=== PATIENT | male | born 1965 | race Caucasian/White ===

== ENCOUNTER 2017-09-02 22:29 | Inpatient (IN) | payer MEDICARE ==
--- NOTE | 2017-09-02 23:29 | C.PDOC ---
History Of Present Illness Patient presents to the ED with complaints of depression. Patient notes he drinks alcohol daily and currently believes he is going through withdrawal. Patient denies suicidal ideations or homicidal ideations. Time Seen by Provider: 09/02/17 23:29 Chief Complaint (Nursing): Psychiatric Evaluation History Per: Patient History/Exam Limitations: no limitations Onset/Duration Of Symptoms: Hrs Current Symptoms Are (Timing): Still Present Suicide/Self Injury Attempted (Context): None Modifying Factor(s): Alcohol Associated Symptoms: Depression. denies: Suicidal Thoughts, Suicidal Plan Involuntary Hold By: None Recent travel outside of the [place]: No Additional History Per: Family Past Medical History Reviewed: Historical Data, Nursing Documentation, Vital Signs Vital Signs: Last Vital Signs Temp 98.5 F 09/03/17 01:07 Pulse 81 09/03/17 01:07 Resp 20 09/03/17 01:07 BP 109/62 09/03/17 01:07 Pulse Ox 95 09/03/17 01:07 - Medical History PMH: Bipolar Disorder, Depression, Diabetes, Schizophrenia, Seizures ( noncompliant with medications) - [facility] (02/10/16) [facility]REATMENT, METHADONE MAINT (02/10/16) Family History: States: No Known Family Hx - Social History Hx Alcohol Use: No Hx Substance Use: Yes (heroin) - Immunization History Hx Tetanus Toxoid Vaccination: Yes Hx Influenza Vaccination: Yes Hx Pneumococcal Vaccination: No Review Of Systems Constitutional: Negative for: Fever Cardiovascular: Negative for: Chest Pain Gastrointestinal: Negative for: Diarrhea Neurological: Negative for: Headache Psych: Positive for: Depression, Withdrawal. Negative for: Suicidal ideation Physical Exam - Physical Exam Appears: Non-toxic, No Acute Distress Skin: Warm, Dry, No Rash Head: Atraumatic, Normacephalic, No Tenderness Eye(s): bilateral: Normal Inspection, PERRL, EOMI Oral Mucosa: Moist Neck: Supple Chest: Symmetrical, No Deformity Cardiovascular: Rhythm Regular, No Murmur Respiratory: No Rales, No Rhonchi, No Wheezing, Other (clear to auscultation bilaterally ) Gastrointestinal/Abdominal: Soft, No Tenderness, No Distention, No Guarding, No Rebound, Other (obese abdomen with small (stretch cruz?) questional excoriations ) Extremity: Normal ROM, No Tenderness, Capillary Refill (<2 seconds ), Other ( trace pedal camille; left fourth toe has an open cut with some granulation tissue appreciated, no exudates) Neurological/Psych: Oriented x3 ED Course And Treatment - Laboratory Results Result Diagrams: 09/02/17 23:30 09/02/17 23:30 O2 Sat by Pulse Oximetry: 99 (RA) Pulse Ox Interpretation: Normal Progress Note: pt will bwnwfit from a podiatry consult, and bid accuchecks Disposition Discussed With : Angela Snell Comment: accepted the pt on his service and took over the care at 12:47 AM Doctor Will See Patient In The: Hospital Counseled Patient/Family Regarding: Studies Performed, Diagnosis - Disposition Disposition: HOSPITALIZED Disposition Time: 23:29 Condition: FAIR - POA Present On Arrival: Poor Glycemic Control - Clinical Impression Clinical Impression: Major depressive disorder, recurrent, unspecified, Alcohol abuse, Cocaine abuse - Scribe Statement The provider has reviewed the documentation as recorded by the Scribe Lucille Young All medical record entries made by the Scribe were at my direction and personally dictated by me. I have reviewed the chart and agree that the record accurately reflects my personal performance of the history, physical exam, medical decision making, and the department course for this patient. I have also personally directed, reviewed, and agree with the discharge instructions and disposition. Decision To Admit - Pt Status Changed To: Hospital Disposition Of: Inpatient - Admit Certification Admit to Inpatient:: After my assessment, the patient will require hospitalization for at least two midnights. This is because of the severity of symptoms shown, intensity of services needed, and/or the medical risk in this patient being treated as an outpatient. - InPatient: Physician Admission Certification: I certify that this patient requires 2 or more midnights of care for the following reason:: After my assessment, the patient will require hospitalization for at least two midnights. This is because of the severity of symptoms shown, intensity of services needed, and/or the medical risk in this patient being treated as an outpatient. - . Bed Request Type: Psychiatry Admitting Physician: Angela Snell Patient Diagnosis: Alcohol abuse, Major depressive disorder, recurrent, unspecified, Cocaine abuse
[2017-09-02 23:41] LABS: RBC URINE 1 /hpf (0-3); URINE BILIRUBIN NEGATIVE (NEGATIVE); URINE BLOOD NEGATIVE (NEGATIVE); URINE COLOR Yellow (YELLOW); URINE GLUCOSE (UA) NORMAL (Normal); URINE KETONE NEGATIVE (NEGATIVE); URINE LEUKOCYTE ESTERASE NEG Leu/uL (Negative); URINE PROTEIN NEGATIVE (NEGATIVE); URINE UROBILINOGEN NORMAL mg/dL (0.2-1.0); WBC URINE 1 /hpf (0-5)
[2017-09-02 23:46] LABS: BASO # 0.1 K/uL (0.0-0.2); BASO % 1.2 % (0.0-2.0); EOS # 0.3 K/uL (0.0-0.7); HEMATOCRIT 42.9 % (35.0-51.0); LYMPH % 31.5 % (20.0-40.0); MEAN CELL VOLUME 89.7 fL (80.0-94.0); MEAN CORPUSCULAR HEMOGLOBIN 30.4 pg (27.0-31.0); MEAN CORPUSCULAR HGB CONC 33.9 g/dL (33.0-37.0); MEAN PLATELET VOLUME 8.9 fL (7.2-11.7); MONO % 10.9 % (0.0-10.0); RED CELL DISTRIBUTION WIDTH 13.7 % (11.5-14.5); WHITE BLOOD COUNT 9.6 K/uL (4.8-10.8)
[2017-09-02 23:49] LABS: ALB/GLOB RATIO 1.2 (1.0-2.1); ALCOHOL SERUM 133 mg/dl (0-10); ALKALINE PHOSPHATASE 61 U/L (38-126); ALT/SGPT 97 U/L (21-72); AST/SGOT 94 U/L (17-59); BILIRUBIN,TOTAL 0.7 mg/dL (0.2-1.3); BLOOD UREA NITROGEN 15 mg/dL (9-20); CALCIUM 8.2 mg/dl (8.6-10.4); CARBON DIOXIDE 23 mmol/L (22-30); CHLORIDE 99 mmol/L (98-107); GFR AFRICAN-AMERICAN > 60; GLUCOSE,RANDOM 126 mg/dL (75-110); POTASSIUM 3.7 mmol/L (3.6-5.2); SODIUM 134 mmol/L (132-148); TOTAL PROTEIN 7.5 g/dL (6.3-8.3)
--- NOTE | 2017-09-03 01:35 | PCM.BM ---
<Dee Veronica - Last Filed: 09/03/17 01:35> Treatment Plan Problems - Problems identified on initial assessmt Suicidal Ideation Date Initiated: 09/03/17 Time Initiated: 01:20 Assessment reference: NA Status: Active Auditory Hallucinations Date Initiated: 09/03/17 Time Initiated: 01:20 Assessment reference: NA Status: Active Substance Abuse Date Initiated: 09/03/17 Time Initiated: 01:20 Assessment reference: NA Status: Active Depression Date Initiated: 09/03/17 Time Initiated: 01:20 Assessment reference: NA Status: Active Treatment assets and liabiliti Patient Assests: cooperative, ADL independent, negotiates basic needs Patient Liabilities: substance abuse, medical problems - Milieu Protocol Maintain good personal hygiene: daily Encourage regular showers, daily Remind patient to perform daily oral care, daily Assist patient to perform ADL's Conduct patient checks and document Observation sheet: Q15 minutes Maintain personal safety: every shift Educate patient to report safety concerns to staff, every shift Monitor environment for contraband/sharps Medication safety: Monitor for expected outcome, potential side effects: every shift, Assess barriers to learning: every shift, Assess readiness for medication education: every shift <Mame Azul - Last Filed: 09/04/17 10:52> Family Contact Family involvement: Fredrickliy/SO not involved - Goals for Treatment Patient goals for treatment: "I need the right medication." Discharge/Continuing Care - Education Needs Education Needs: Patient Medication, Patient Coping Skills, Patient Placement options, Patient Community resources - Discharge Discharge Criteria: Tolerates medication w/o severe side effects, Free of Suicidal thoughts, No longer exhibiting s/s of withdrawal, Reduction of target symptoms Discharge to:: Home - Treatment Team Participation Discussed with Family/SO: No Was Patient/Family/SO present at Treatment Team Meeting: Yes <Ronald Rangel - Last Filed: 09/04/17 10:58> - Diagnosis (1) Schizoaffective disorder Status: Acute Interventions: 09/04/17 10:57 * Assess/adjust medications daily and /or as needed * See patient on an individual basis 7x/week to assess status of hallucinations * Discuss risks, benefits, side effects and alternatives of medications * (2) Alcohol abuse Status: Acute Interventions: 09/04/17 10:57 * Assess 7x/week regarding severity of withdrawal * Educate regarding risks, benefits, side effects and alternatives of medications * Use Motivational Interviewing for abstinence * Use CBT for relapse prevention * Medication management for withdrawal symptoms * Encourage medication assisted treatment * (3) Heroin abuse Status: Acute Interventions: 09/04/17 10:57 * Assess 7x/week regarding severity of withdrawal * Educate regarding risks, benefits, side effects and alternatives of medications * Use Motivational Interviewing for abstinence * Use CBT for relapse prevention * Medication management for withdrawal symptoms * Encourage medication assisted treatment *
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
[2017-09-03] MEDS ORDERED: Aluminum Hydroxide/Magnesium Hydroxide Susp (30 mL) PO PRN (12:17)
[2017-09-03] MEDS: Multiple Vitamins Tab PO SCH (12:57)
[2017-09-04] MEDS: Multiple Vitamins Tab PO SCH (09:44)
[2017-09-04] MEDS ORDERED: Divalproex 500 mg DR Tab PO STA (10:53)
--- NOTE | 2017-09-04 10:59 | PCM.PYCHPN ---
Psychiatric Progress Note - Psychiatric Progress Note Patient seen today, length of contact: 17 min Patient Chief Complaint: "not good" Problems Identified/Issues Discussed: The patient was seen, chart reviewed, and case discussed with staff. Patient and staff report no events overnight. He reports poor sleep due to flashbacks of childhood events. He continues to report suicidal ideations with a vague plan to "do anything to ." He continues to report auditory hallucinations that tell him to harm himself and "go to hell." He continues to report visual hallucinations of shadows and demons. He reports feelings of depression and decreased levels of: sleep, interest, energy, concentration, appetite, psychomotor ability. He also reports feelings of anxiety due to being in the hospital. Patient appears appropriately dressed and internally preoccupied. He has a constricted affect with loud/angry speech. He is cooperative but very irritable. Patient is compliant with medications and reports no side effects. Symptoms are still present and need more time to stabilize. Support and psychoeducation given. Medical Problems: He reports improvement of his withdrawal symptoms. Medication Change: Yes (methadone taper) Medical Record Reviewed: Yes Mental Status Examination - Cognitive Function Orientation: Person, Place, Situation, Time Memory: Intact Attention: Poor Concentration: Poor Association: Loose Fund of Knowledge: Poor - Mood Mood: Depressed, Anxious - Affect Affect: Constricted, Depressed - Speech Speech: Loud - Formal Thought Process Formal Thought Process: Hallucinations, Delusions, Paranoia, Loosening of associations - Suicidal Ideation Suicidal Ideation: Yes Plan: vague - Homicidal Ideation Homicidal Ideation: No Goal/Treatment Plan - Goal/Treatment Plan Need for Continued Stay: Remain at risks for inpatient hospitalization, Severe depression anxiety, Discharge may exacerbated symptoms Progress Toward Problem(s) and Goals/Treatment Plan: Schizophrenia paranoid type continuous CBT Psychoeducation Supportive therapy, group therapy, individual therapy Olanzapine 10 mg by mouth HS Zoloft 50 mg PO Daily Trazodone 50 mg by mouth daily at bedtime Opioid use disorder severe CBT Psychoeducation Supportive therapy, individual therapy Use [place] for abstinence Opioid withdrawal CBT Psychoeducation Supportive therapy, individual therapy Clonidine when necessary Methadone taper Alcohol use disorder severe CBT Psychoeducation Supportive therapy, individual therapy Use [place] for abstinence Alcohol withdrawal CBT Psychoeducation Supportive therapy, individual therapy Librium taper Librium PRN Cocaine use disorder moderate Monitor signs and symptoms Use [place] for abstinence DM Continue prescribed medications HTN Continue prescribed medications Seizures Continue prescribed medications - Smoking Cessation Smoking Cessation Initiated: No
[2017-09-04] MEDS ORDERED: DiphenhydrAMINE 50 mg/ml Inj IM PRN (11:22)
[2017-09-04] MEDS: Divalproex 500 mg DR Tab PO SCH (17:53)
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
[2017-09-05] MEDS: Multiple Vitamins Tab PO SCH (09:48)
[2017-09-05] MEDS: Divalproex 500 mg DR Tab PO SCH ×2 (09:48→17:34)
--- NOTE | 2017-09-05 10:38 | PCM.PYCHPN ---
Psychiatric Progress Note - Psychiatric Progress Note Patient seen today, length of contact: 15 min Patient Chief Complaint: "I'm not good at all" Problems Identified/Issues Discussed: This patient was seen, chart reviewed, and case discussed with staff. Patient and staff report that the patient fell yesterday, however he didn't hit his head. Patient continues to report suicidal ideations with a vague plan. He denies any homicidal ideations. He reports increasing feelings of depression and anxiety. He reports auditory and visual hallucinations, hearing and seeing "demons." He reports poor sleep due to the AVH. He continues to report poor appetite. Patient appears disheveled and remained irritable and agitated with the staff. He continues to have loud/angry speech. He is seen by staff pacing in the halls. Patient is compliant with medications and denies any side effects. Symptoms persist and need more time to stabilize. Support and psychoeducation given. Medication Change: Yes (methadoen taper) Medical Record Reviewed: Yes Mental Status Examination - Cognitive Function Orientation: Person, Place, Situation, Time Memory: Intact Attention: WNL Concentration: WNL Association: Loose Fund of Knowledge: Poor - Mood Mood: Depressed, Anxious - Affect Affect: Constricted, Depressed - Speech Speech: Loud - Formal Thought Process Formal Thought Process: Hallucinations, Delusions, Paranoia, Loosening of associations - Suicidal Ideation Suicidal Ideation: Yes Plan: vague - Homicidal Ideation Homicidal Ideation: No Goal/Treatment Plan - Goal/Treatment Plan Need for Continued Stay: Remain at risks for inpatient hospitalization, Severe depression anxiety, Discharge may exacerbated symptoms, Other Progress Toward Problem(s) and Goals/Treatment Plan: Schizophrenia paranoid type continuous CBT Psychoeducation Supportive therapy, group therapy, individual therapy Depakote 500 mg pO BID Zoloft 50 mg PO Daily Trazodone 100 mg by mouth daily at bedtime Opioid use disorder severe CBT Psychoeducation Supportive therapy, individual therapy Use [place] for abstinence Opioid withdrawal CBT Psychoeducation Supportive therapy, individual therapy Clonidine when necessary Methadone taper Alcohol use disorder severe CBT Psychoeducation Supportive therapy, individual therapy Use [place] for abstinence Alcohol withdrawal CBT Psychoeducation Supportive therapy, individual therapy Librium taper Librium PRN Cocaine use disorder moderate Monitor signs and symptoms Use [place] for abstinence DM Continue prescribed medications Metformin, lantus etc Continue Accu checks HTN Continue prescribed medications Seizures Continue prescribed medications - Smoking Cessation Smoking Cessation Initiated: No
[2017-09-05] MEDS ORDERED: (Novolog) Insulin Aspart, Recombinant 100 u/ml 10 ml vial SC SCH (11:30)
[2017-09-05] MEDS: (Novolog) Insulin Aspart, Recombinant 100 u/ml 10 ml vial SC SCH ×2 (11:57→16:42)
[2017-09-05] MEDS ORDERED: DiphenhydrAMINE 50 mg/ml Inj IM ONE (19:30)
[2017-09-05 19:38] VITALS: O2SAT 95
[2017-09-05] MEDS ORDERED: (Lantus) Insulin Glargine, Recombinant SC SCH (22:00)
[2017-09-06 07:00] VITALS: RESP 20; TEMP 98.3
[2017-09-06] MEDS: (Novolog) Insulin Aspart, Recombinant 100 u/ml 10 ml vial SC SCH ×3 (08:07→16:41)
[2017-09-06] MEDS: Multiple Vitamins Tab PO SCH (09:56)
[2017-09-06] MEDS: Divalproex 500 mg DR Tab PO SCH ×2 (09:56→17:47)
--- NOTE | 2017-09-06 10:05 | PCM.PYCHPN ---
Psychiatric Progress Note - Psychiatric Progress Note Patient seen today, length of contact: 15 min Patient Chief Complaint: "I'm better I think" Problems Identified/Issues Discussed: This patient was seen, chart reviewed, and case discussed with staff. Patient reports poor sleep due to continued auditory and visual hallucinations. He continues to report increasing feelings of depression and anxiety. He reports poor appetite. He denies any suicidal or homicidal ideations at this time. Patient appears disheveled and lethargic. He continues to pace in the halls, but now spends more time in his room to sleep. He is cooperative but is slow to respond to questions during the interview, closing his eyes for several seconds and needing redirection. Patient is compliant with medications and denies any side effects. Symptoms persist and need more time to stabilize. Support and psychoeducation given. Medical Record Reviewed: Yes Mental Status Examination - Cognitive Function Orientation: Person, Place, Situation, Time Memory: Intact Attention: WNL Concentration: WNL Association: Loose Fund of Knowledge: Poor - Mood Mood: Depressed, Anxious - Affect Affect: Constricted, Depressed - Speech Speech: Slurred, Soft - Formal Thought Process Formal Thought Process: Hallucinations, Delusions, Paranoia, Loosening of associations - Suicidal Ideation Suicidal Ideation: No - Homicidal Ideation Homicidal Ideation: No Goal/Treatment Plan - Goal/Treatment Plan Need for Continued Stay: Remain at risks for inpatient hospitalization, Severe depression anxiety, Discharge may exacerbated symptoms, Other Progress Toward Problem(s) and Goals/Treatment Plan: Schizophrenia paranoid type continuous CBT Psychoeducation Supportive therapy, group therapy, individual therapy Depakote 500 mg pO BID Zoloft 50 mg PO Daily Trazodone 100 mg by mouth daily at bedtime Opioid use disorder severe CBT Psychoeducation Supportive therapy, individual therapy Use DC for abstinence Opioid withdrawal CBT Psychoeducation Supportive therapy, individual therapy Clonidine when necessary Methadone taper Alcohol use disorder severe CBT Psychoeducation Supportive therapy, individual therapy Use DC for abstinence Alcohol withdrawal CBT Psychoeducation Supportive therapy, individual therapy Librium taper Librium PRN Cocaine use disorder moderate Monitor signs and symptoms Use DC for abstinence DM Continue prescribed medications Metformin, lantus etc Continue Accu checks HTN Continue prescribed medications Seizures Continue prescribed medications
[2017-09-06 16:35] VITALS: BP 120/82; PULSE 76
--- NOTE | 2017-09-06 19:59 | CP.PCM.CON ---
<Concha Tomlin - Last Filed: 09/06/17 19:55> History of Present Illness - History of Present Illness History of Present Illness: Medicine Consult Note: Medicine consult was called for foot pain. Patient was seen and examined at bedside. Patient states his left foot started to hurt 2 nights ago. He says his pain is sharp located on his second toe. Patient denies radiation. He states nothing makes the better and nothing makes the pain worse. Patient denies fever, numbness, tingling, difficulty breathing, chest pain, nausea or vomiting. Medical History: Diabetes Surgical History: Spinal Cord surgery 2014 Family History: denies: Medications: Lantus - does not remember the dose Allergies: Resperidone and Haloperidol - rash Social History: unemployed; use of cocaine, heroine and alcohol Review of Systems - Constitutional Constitutional: absent: Chills, Fever - EENT Ears: absent: Dizziness - Cardiovascular Cardiovascular: absent: Chest Pain, Dyspnea - Respiratory Respiratory: absent: Dyspnea - Gastrointestinal Gastrointestinal: absent: Constipation, Diarrhea, Nausea, Vomiting - Genitourinary Genitourinary: absent: Dysuria - Neurological Neurological: absent: Dizziness, Headaches, Tingling, Weakness - Psychiatric Psychiatric: Depression Past Patient History - Infectious Disease Hx of Infectious Diseases: None - Past Social History Smoking Status: Never Smoked - CARDIAC Hx Cardiac Disorders: No Hx Hypertension: No - PULMONARY Hx Respiratory Disorders: No Hx Tuberculosis: No - NEUROLOGICAL Hx Seizures: Yes (noncompliant with medications) - HEENT Hx HEENT Problems: No - RENAL Hx Chronic Kidney Disease: No - ENDOCRINE/METABOLIC Hx Diabetes Mellitus Type 1: Yes (noncompliant with medications) - HEMATOLOGICAL/ONCOLOGICAL Hx AIDS: No Hx Cancer: No Hx Human Immunodeficiency Virus (HIV): No - INTEGUMENTARY Hx Dermatological Problems: No Other/Comment: Diabetic changes; thick skin - MUSCULOSKELETAL/RHEUMATOLOGICAL Hx Musculoskeletal Disorders: No Hx Falls: No - GASTROINTESTINAL Hx Gastrointestinal Disorders: No - GENITOURINARY/GYNECOLOGICAL Hx Genitourinary Disorders: No Hx Sexually Transmitted Disorders: No - PSYCHIATRIC Hx Substance Use: Yes - SURGICAL HISTORY Hx Surgeries: Yes Hx Orthopedic Surgery: Yes (Spinal surgery) Other/Comment: back surgery - ANESTHESIA Hx Anesthesia: Yes Hx Anesthesia Reactions: No Hx Malignant Hyperthermia: No Meds Allergies/Adverse Reactions: Allergies Allergy/AdvReac Type Severity Reaction Status Date / Time chlorpromazine HCl Allergy Verified 09/02/17 22:35 [From Thorazine] haloperidol [From Haldol] Allergy Verified 09/02/17 22:35 haloperidol lactate Allergy Verified 09/02/17 22:35 [From Haldol] risperidone [From Risperdal] Allergy Verified 09/02/17 22:35 - Medications Medications: Current Medications Al Hydrox/Mg Hydrox/Simethicone (Maalox 30 Ml) 30 ml PO TID PRN PRN Reason: Indigestion / Heartburn Chlordiazepoxide (Librium) 25 mg PO BID [facility] PRN Reason: Taper Stop: 09/08/17 17:59 Last Admin: 09/06/17 17:47 Dose: 25 mg Chlordiazepoxide (Librium) 25 mg PO Q4H PRN PRN Reason: Alcohol Withdrawal Clonidine HCl (Catapres) 0.1 mg PO Q6H PRN PRN Reason: Anxiety Last Admin: 09/03/17 02:05 Dose: 0.1 mg Divalproex Sodium (Depakote Dr) 500 mg PO BID [facility] Last Admin: 09/06/17 17:47 Dose: 500 mg Folic Acid (Folic Acid) 1 mg PO DAILY [facility] Last Admin: 09/06/17 09:56 Dose: 1 mg Insulin Aspart (Novolog) 10 unit SC TIDAC [facility] Last Admin: 09/06/17 16:41 Dose: 10 unit Insulin Glargine (Lantus) 15 unit SC HS [facility] Last Admin: 09/05/17 21:38 Dose: 15 unit Loperamide HCl (Imodium) 2 mg PO Q8 PRN PRN Reason: Diarrhea Last Admin: 09/05/17 20:20 Dose: 2 mg Lorazepam (Ativan) 1 mg PO Q6H PRN PRN Reason: Agitation Last Admin: 09/06/17 15:40 Dose: 1 mg [facility] Last Admin: 09/06/17 17:28 Dose: 1,000 mg Methadone HCl (Methadone) 5 mg PO DAILY [facility] PRN Reason: Taper Stop: 09/07/17 09:59 Last Admin: 09/06/17 09:57 Dose: 5 mg Multivitamins (Hexavitamin) 1 tab PO DAILY [facility] Last Admin: 09/06/17 09:56 Dose: 1 tab Ondansetron HCl (Zofran Tab) 4 mg PO Q8 PRN PRN Reason: Nausea/Vomiting Phenytoin Sodium (Dilantin) 100 mg PO TID [facility] Last Admin: 09/06/17 17:48 Dose: 100 mg Prazosin HCl (Minipress) 2 mg PO HS [facility] Last Admin: 09/05/17 21:14 Dose: 2 mg Sertraline HCl (Zoloft) 50 mg PO DAILY [facility] Last Admin: 09/06/17 09:56 Dose: 50 mg Thiamine HCl (Vitamin B1 Tab) 100 mg PO DAILY [facility] Last Admin: 09/06/17 09:56 Dose: 100 mg Trazodone HCl (Desyrel) 100 mg PO HS PRN PRN Reason: Sleep Last Admin: 09/05/17 21:14 Dose: 100 mg Ziprasidone (Geodon Cap) 20 mg PO BID [facility] Last Admin: 09/06/17 18:41 Dose: Not Given Physical Exam - Constitutional Appears: No Acute Distress - Head Exam Head Exam: ATRAUMATIC, NORMAL INSPECTION - Eye Exam Eye Exam: EOMI - ENT Exam ENT Exam: Mucous Membranes Moist - Respiratory Exam Respiratory Exam: Clear to Auscultation Bilateral, NORMAL BREATHING PATTERN. absent: Rales, Rhonchi, Wheezes, Stridor - Cardiovascular Exam Cardiovascular Exam: REGULAR RHYTHM, RRR, +S1, +S2 - GI/Abdominal Exam GI & Abdominal Exam: Normal Bowel Sounds, Soft. absent: Tenderness - Extremities Exam Extremities exam: Positive for: normal inspection - Neurological Exam Neurological exam: Alert, Oriented x3 - Psychiatric Exam Psychiatric exam: Flat Affect - Skin Skin Exam: Dry, Intact, Normal Color, Warm Results - Vital Signs Recent Vital Signs: Last Vital Signs Temp 98.3 F 09/06/17 06:59 Pulse 76 09/06/17 15:30 Resp 20 09/06/17 06:59 BP 120/82 09/06/17 15:30 Pulse Ox 95 09/05/17 19:26 - Labs Result Diagrams: 09/02/17 23:30 09/02/17 23:30 Labs: Laboratory Results - last 24 hr 09/05/17 09/06/17 09/06/17 20:30 07:29 11:26 POC Glucose (mg/dL) 236 H 215 H 157 H 09/06/17 15:43 POC Glucose (mg/dL) 160 H Assessment & Plan - Assessment and Plan (Free Text) Assessment: 51 year old male with past medical history of diabetes, schizophrenia and multiple substance abuse withdrawal. Patient was consulted for foot pain. At this time no medical management is necessary. Patient is walking comfortably. Patient's skin is clean, dry and intact. Thank you for this consult. Please consult if necessary. Case discussed with Dr. Tessie Tomlin PGY-1 <Ted Kurtz - Last Filed: 09/07/17 07:24> Results - Vital Signs Recent Vital Signs: Last Vital Signs Temp 98.3 F 09/06/17 06:59 Pulse 76 09/06/17 15:30 Resp 20 09/06/17 06:59 BP 120/82 09/06/17 15:30 Pulse Ox 95 09/05/17 19:26 - Labs Result Diagrams: 09/02/17 23:30 09/02/17 23:30 Labs: Laboratory Results - last 24 hr 09/06/17 09/06/17 09/06/17 07:29 11:26 15:43 POC Glucose (mg/dL) 215 H 157 H 160 H Attending/Attestation - Attestation I have personally seen and examined this patient.: Yes I have fully participated in the care of the patient.: Yes I have reviewed all pertinent clinical information: Yes Notes (Text): Medical Consult: Patient was seen and examined by me. Agree with the above note by the resident Medicine was consulted due to pain in the lower extremities. On physical exam he does not have any open wounds of the feet. He does not have erythema, he does not have pedal edema or edema in the lower anterior gibson On exam we also had him walk with us and he was readily able to do so without assistance. He is obeserved walking up and down the hallway of on his own. Please notify us if there are changes thank you Ted Kurtz
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
== END 2017-09-06 20:45 | disposition home or self-care (01) | DRG 885 ==
LOC: C.ER 22:29 → SUPCPDRO 22:29 → C.5E 09-03 00:45
PROVIDERS: ADMIT Psychiatry & Neurology Psychiatry; ATTEND Psychiatry & Neurology Psychiatry
PROC: GZ3ZZZZ Medication Management (ICD-10-PCS; principal; 2017-09-03)
PROC: HZ56ZZZ Individual Psychotherapy for Substance Abuse Treatment, Psychoeducation (ICD-10-PCS; 2017-09-03)
PROC: HZ2ZZZZ Detoxification Services for Substance Abuse Treatment (ICD-10-PCS; 2017-09-03)
PROC: GZHZZZZ Group Psychotherapy (ICD-10-PCS; 2017-09-03)
PROC: GZ56ZZZ Individual Psychotherapy, Supportive (ICD-10-PCS; 2017-09-03)
DX: F20.0 Paranoid schizophrenia (principal); R45.851 Suicidal ideations; F11.23 Opioid dependence with withdrawal; F10.239 Alcohol dependence with withdrawal, unspecified; F14.20 Cocaine dependence, uncomplicated; R56.9 Unspecified convulsions; E10.9 Type 1 diabetes mellitus without complications; F06.4 Anxiety disorder due to known physiological condition; F25.9 Schizoaffective disorder, unspecified; I10 Essential (primary) hypertension; F31.9 Bipolar disorder, unspecified; Z91.14 Patient's other noncompliance with medication regimen; Z79.4 Long term (current) use of insulin; Z79.899 Other long term (current) drug therapy; Y90.6 Blood alcohol level of 120-199 mg/100 ml

== ENCOUNTER 2018-09-19 20:35 | Emergency (ER) | payer MEDICARE ==
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
[2018-09-19] MEDS ORDERED: Morphine 4 MG/ML VIAL IM STA (22:05)
[2018-09-19] MEDS ORDERED: Morphine 4 MG/ML VIAL ONE (22:20)
[2018-09-19 23:03] LABS: BASO # 0.1 K/uL (0.0-0.2); BASO % 0.7 % (0.0-2.0); EOS # 0.4 K/uL (0.0-0.7); EOS % 4.1 % (0.0-4.0); HEMOGLOBIN 13.6 g/dL (12.0-18.0); LYMPH % 20.9 % (20.0-40.0); MEAN CELL VOLUME 90.8 fL (80.0-94.0); MEAN CORPUSCULAR HEMOGLOBIN 30.9 pg (27.0-31.0); MEAN PLATELET VOLUME 8.2 fL (7.2-11.7); MONO # 1.4 K/uL (0.0-0.8); MONO % 14.3 % (0.0-10.0); NEUT # 5.7 K/uL (1.8-7.0); NRBC % 0.1 % (0.0-2.0); RBC 4.39 Mil/uL (4.40-5.90); RED CELL DISTRIBUTION WIDTH 13.5 % (11.5-14.5); WHITE BLOOD COUNT 9.6 K/uL (4.8-10.8)
[2018-09-19 23:17] LABS: ALB/GLOB RATIO 1.1 (1.0-2.1); ALBUMIN 3.9 g/dL (3.5-5.0); ALT/SGPT 30 U/L (21-72); AST/SGOT 45 U/L (17-59); BLOOD UREA NITROGEN 11 mg/dL (9-20); CALCIUM 8.7 mg/dl (8.6-10.4); GFR NON-AFRICAN AMERICAN > 60
[2018-09-19 23:44] LABS: PROTHROMBIN TIME 11.3 SECONDS (9.7-12.2)
[2018-09-19 23:53] VITALS: BP 120/67; PULSE 70; RESP 18; TEMP 98.1; O2SAT 95
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
== END 2018-09-20 01:08 | disposition short-term general hospital (02) ==
LOC: C.ER 20:35
DX: S02.69XA Fracture of mandible of other specified site, initial encounter for closed fracture (principal); Y04.0XXA Assault by unarmed brawl or fight, initial encounter
CPT/HCPCS: 70450; 70480; 80053; 85025; 85610; 85730; 96372; 99283; G0480; J2270

== ENCOUNTER 2019-02-15 23:38 | Inpatient (IN) | payer MEDICARE ==
--- NOTE | 2019-02-15 23:59 | C.PDOC ---
History Of Present Illness 53 yr old male w/ hx of etoh and heroin abuse, Anxiety, Bipolar Disorder, Depression, Diabetes, HTN p/w request for detox from heroin and etoh. He notes last snorting (No IVDU) heroin around 0600 this morning, and last etoh use at 06 00. He denies any current withdrawal symptoms. He denies any physical complaints. No SI / HI. No depression / anxiety or hallucinations. Time Seen by Provider: 02/15/19 23:45 Chief Complaint (Nursing): Substance Abuse Past Medical History Vital Signs: Last Vital Signs Temp 97.8 F 02/15/19 23:52 Pulse 90 02/15/19 23:52 Resp 18 02/15/19 23:52 BP 159/83 H 02/15/19 23:52 Pulse Ox 96 02/15/19 23:52 Primary Care Provider: FAMILY PROVIDER,NO - Medical History PMH: Anxiety, Bipolar Disorder, Depression, Diabetes, HTN, Schizophrenia, Seizures (noncompliant with medications) Denies: Hepatitis, HIV, Chronic Kidney Disease, Sexually Transmitted Disease - [facility] Procedures DETOXIFICATION SERVICES FOR SUBSTANCE ABUSE TREATMENT (09/03/17) GROUP PSYCHOTHERAPY (09/03/17) INDIV PSYCHOTHERAPY FOR SUBSTANCE ABUSE, PSYCHOEDUCATION (09/03/17) INDIVIDUAL PSYCHOTHERAPY, SUPPORTIVE (09/03/17) MEDICATION MANAGEMENT (09/03/17) MEDS MGMT FOR SUBSTANCE ABUSE TREATMENT, METHADONE MAINT (02/10/16) Family History: States: Unknown Family Hx - Social History Hx Alcohol Use: Yes Hx Substance Use: Yes - Immunization History Hx Tetanus Toxoid Vaccination: No Hx Influenza Vaccination: No Hx Pneumococcal Vaccination: No Review Of Systems Constitutional: Negative for: Fever, Chills, Sweats, Weakness, Malaise Eyes: Negative for: Pain, Vision Change, Conjunctivae Inflammation, Eyelid Inflammation ENT: Negative for: Ear Pain, Ear Discharge, Nose Pain, Nose Congestion, Mouth Pain Cardiovascular: Negative for: Chest Pain, Palpitations, Orthopnea, Edema Respiratory: Negative for: Cough, Shortness of Breath, SOB with Excertion Gastrointestinal: Negative for: Nausea, Vomiting, Abdominal Pain, Diarrhea, Constipation, Melena, Hematochezia, Hematemesis Genitourinary: Negative for: Dysuria, Frequency, Incontinence, Hematuria, Penile Discharge, Rash Musculoskeletal: Negative for: Neck Pain, Shoulder Pain, Arm Pain, Back Pain, Hand Pain Skin: Negative for: Rash, Lesions, Jaundice Neurological: Negative for: Weakness, Numbness, Incoordination, Headache Physical Exam - Physical Exam Appears: Well, Non-toxic Skin: Normal Color, Warm Head: Atraumatic, Normacephalic Eye(s): bilateral: Normal Inspection Ear(s): Bilateral: Normal Nose: Normal Oral Mucosa: Moist Tongue: Normal Appearing Lips: Normal Appearing Throat: Normal, No Erythema, No Exudate, No Drooling Neck: Normal, Normal ROM, No Midline Cervical Tenderness, Supple, Other (no meningeal signs) Lymphatic: No Adenopathy Cardiovascular: Rhythm Regular, No Edema Respiratory: Normal Breath Sounds, No Rales, No Rhonchi, No Stridor, No Wheezing Gastrointestinal/Abdominal: Normal Exam, Soft, No Tenderness, No Mass, No Distention, No Guarding, No Hernia Back: Normal Inspection, No CVA Tenderness, No Vertebral Tenderness Male Genital: Normal Inspection Extremity: Normal ROM Neurological/Psych: Oriented x3, Normal Speech, Normal Cognition Gait: Steady Extremity: Right: No Drift, Left: No Drift ED Course And Treatment - Laboratory Results Result Diagrams: 02/16/19 00:33 02/16/19 00:33 O2 Sat by Pulse Oximetry: 96 Medical Decision Making Medical Decision Makin yr old male w/ hx of etoh and heroin abuse, Anxiety, Bipolar Disorder, Depression, Diabetes, HTN p/w request for detox from heroin and etoh. No signs of withdrawal on exam. No injection sites noted. Physical exam unremarkable pending crisis eval 0138 labs reviewed, largely unremarkable CXR on my read unremarkable EK, nsr, no stemi medically clear appreciate consult w/ Database Security Expert: Hedy: to admit to [facility] service 0140 Pt requesting something for mild withdrawal: no tremors noted on my exam, pt non tachy. No signs of withdrawal 25 librium ordered per pt request Disposition - Disposition Disposition: HOSPITALIZED Disposition Time: 01:55 Condition: STABLE - Clinical Impression Clinical Impression: Desire for detoxification, Alcohol abuse
[2019-02-16 00:39] LABS: BASO # 0.1 K/uL (0.0-0.2); BASO % 0.9 % (0.0-2.0); EOS # 0.3 K/uL (0.0-0.7); EOS % 3.9 % (0.0-4.0); HEMOGLOBIN 13.3 g/dL (12.0-18.0); LYMPH % 27.4 % (20.0-40.0); MEAN CELL VOLUME 89.6 fL (80.0-94.0); MEAN CORPUSCULAR HEMOGLOBIN 31.2 pg (27.0-31.0); MEAN CORPUSCULAR HGB CONC 34.8 g/dL (33.0-37.0); MEAN PLATELET VOLUME 8.1 fL (7.2-11.7); MONO % 13.4 % (0.0-10.0); NEUT # 3.9 K/uL (1.8-7.0); NEUT % 54.4 % (50.0-75.0); NRBC % 0.1 % (0.0-2.0); RBC 4.27 Mil/uL (4.40-5.90); RED CELL DISTRIBUTION WIDTH 13.8 % (11.5-14.5); WHITE BLOOD COUNT 7.1 K/uL (4.8-10.8)
[2019-02-16 00:54] LABS: BARBITURATES, UR NEGATIVE (NEGATIVE); BENZODIAZEPINES, UR NEGATIVE (NEGATIVE); PHENCYCLIDINE, UR NEGATIVE (NEGATIVE); SQUAMOUS EPITHIAL 1 /hpf (0-5); URINE BILIRUBIN NEGATIVE (NEGATIVE); URINE BLOOD NEGATIVE (NEGATIVE); URINE CLARITY Clear (Clear); URINE COLOR Yellow (YELLOW); URINE GLUCOSE (UA) NORMAL (Normal); URINE LEUKOCYTE ESTERASE NEG Leu/uL (Negative); URINE PROTEIN NEGATIVE (NEGATIVE)
[2019-02-16 01:02] LABS: ACETAMINOPHEN < 10.0 ug/mL (10.0-30.0); SALICYLATE < 1.0 mg/dL 1
[2019-02-16 01:04] LABS: ALB/GLOB RATIO 1.1 (1.0-2.1); ALBUMIN 4.1 g/dL (3.5-5.0); ALT/SGPT 39 U/L (21-72); AST/SGOT 40 U/L (17-59); BLOOD UREA NITROGEN 17 mg/dL (9-20); CALCIUM 9.6 mg/dl (8.6-10.4); GFR NON-AFRICAN AMERICAN > 60
[2019-02-16 01:21] LABS: OPIATES, UR POSITIVE (NEGATIVE)
[2019-02-16] MEDS ORDERED: Dextrose 50% SYRINGE Inj (50 ml) IV PRN (03:18)
[2019-02-16] MEDS ORDERED: Glucagon Recombinant 1 mg Inj IM PRN (03:18)
--- NOTE | 2019-02-16 03:20 | CP.PCM.HP ---
<Freida Sahu - Last Filed: 02/16/19 05:02> History of Present Illness - History of Present Illness History of Present Illness: Patient is a 53 year old male w/ pmhx of alcohol and opioid abuse, seizure disorder, DM2, HTN who was admitted to detox, transferred to medicine s/p seizure activity on unit. Patient reports a history of seizure disorder in the past, treated with medication, but reports non-compliance. He says he's unable to recall when his last seizure was. Patient complains of persistent right sided jaw pain 2/2 a reported fracture. Patient currently denies complaints including headache, dizziness, weakness, chest pain, SOB, nausea pmhx: sizure d/o, alcohol/opioid use d/o, DM2, HTN, Hep C pshx: spinal sx meds: unknown allergies: abilify, haldol, thorazine, risperdal Sochx: 1.5 pts daily, 25 bags heroin daily(intranasal), 1 ppd smoker Present on Admission - Present on Admission Any Indicators Present on Admission: No Review of Systems - EENT Eyes: absent: Change in Vision Additional comments: right sided jaw pain - Cardiovascular Cardiovascular: absent: Chest Pain, Palpitations - Respiratory Respiratory: absent: Cough, Dyspnea - Gastrointestinal Gastrointestinal: absent: Abdominal Pain, Constipation, Diarrhea, Nausea - Genitourinary Genitourinary: absent: Difficulty Urinating - Musculoskeletal Musculoskeletal: absent: Back Pain, Neck Pain - Neurological Neurological: absent: Focal Weakness, Syncope Past Patient History - Infectious Disease Hx of Infectious Diseases: None - Past Social History Smoking Status: Heavy Smoker > 10 Cigarettes Daily - CARDIAC Hx Hypertension: Yes - PULMONARY Hx Respiratory Disorders: No Hx Tuberculosis: No - NEUROLOGICAL Hx Seizures: Yes (noncompliant with medications) - HEENT Hx HEENT Problems: No - RENAL Hx Chronic Kidney Disease: No - ENDOCRINE/METABOLIC Hx Endocrine Disorders: Yes Hx Diabetes Mellitus Type 1: Yes - HEMATOLOGICAL/ONCOLOGICAL Hx Human Immunodeficiency Virus (HIV): No - INTEGUMENTARY Hx Dermatological Problems: No Other/Comment: Diabetic changes; thick skin - MUSCULOSKELETAL/RHEUMATOLOGICAL Hx Musculoskeletal Disorders: No Hx Falls: No - GASTROINTESTINAL Hx Gastrointestinal Disorders: No - GENITOURINARY/GYNECOLOGICAL Hx Sexually Transmitted Disorders: No - PSYCHIATRIC Hx Anxiety: Yes Hx Bipolar Disorder: Yes Hx Depression: Yes Hx Schizophrenia: Yes Hx Substance Use: Yes - SURGICAL HISTORY Hx Surgeries: Yes Hx Orthopedic Surgery: Yes (Spinal surgery) Other/Comment: back surgery - ANESTHESIA Hx Anesthesia: Yes Hx Anesthesia Reactions: No Hx Malignant Hyperthermia: No Meds Allergies/Adverse Reactions: Allergies Allergy/AdvReac Type Severity Reaction Status Date / Time aripiprazole [From Abilify] Allergy Mild Verified 02/15/19 23:55 chlorpromazine HCl Allergy Verified 02/15/19 23:55 [From Thorazine] haloperidol [From Haldol] Allergy Verified 02/15/19 23:55 haloperidol lactate Allergy Verified 02/15/19 23:55 [From Haldol] risperidone [From Risperdal] Allergy Verified 02/15/19 23:55 Physical Exam - Constitutional Appears: Confused Additional comments: s/p seizure - Head Exam Head Exam: ATRAUMATIC, NORMAL INSPECTION, NORMOCEPHALIC - Eye Exam Eye Exam: EOMI, Normal appearance Pupil Exam: NORMAL ACCOMODATION, PERRL - ENT Exam ENT Exam: Mucous Membranes Moist, Normal Exam - Neck Exam Neck exam: Positive for: Normal Inspection - Respiratory Exam Respiratory Exam: Clear to Auscultation Bilateral, NORMAL BREATHING PATTERN - Cardiovascular Exam Cardiovascular Exam: REGULAR RHYTHM. absent: Tachycardia - GI/Abdominal Exam GI & Abdominal Exam: Normal Bowel Sounds, Soft - Extremities Exam Extremities exam: Positive for: normal inspection. Negative for: calf tenderness, pedal edema - Neurological Exam Neurological exam: Alert - Psychiatric Exam Psychiatric exam: Normal Affect, Normal Mood - Skin Skin Exam: Dry, Intact, Normal Color, Warm Results - Vital Signs Recent Vital Signs: Last Vital Signs Temp 97.1 F L 02/16/19 02:05 Pulse 78 02/16/19 02:05 Resp 16 02/16/19 02:05 BP 119/66 02/16/19 02:05 Pulse Ox 96 02/16/19 02:24 - Labs Result Diagrams: 02/16/19 00:33 02/16/19 00:33 Labs: Laboratory Results - last 24 hr 02/16/19 02/16/19 02/16/19 00:08 00:33 00:33 WBC 7.1 RBC 4.27 L Hgb 13.3 Hct 38.3 MCV 89.6 MCH 31.2 H MCHC 34.8 RDW 13.8 Plt Count 287 MPV 8.1 Neut % (Auto) 54.4 Lymph % (Auto) 27.4 [place] % (Auto) 13.4 H Eos % (Auto) 3.9 Baso % (Auto) 0.9 Neut # (Auto) 3.9 Lymph # (Auto) 2.0 [place] # (Auto) 1.0 H Eos # (Auto) 0.3 Baso # (Auto) 0.1 Sodium Potassium Chloride Carbon Dioxide Anion Gap BUN Creatinine Est GFR ( Amer) Est GFR (Non-Af Amer) POC Glucose (mg/dL) 93 Random Glucose Calcium Phosphorus Magnesium Total Bilirubin AST ALT Alkaline Phosphatase Total Protein Albumin Globulin Albumin/Globulin Ratio Urine Color Yellow Urine Clarity Clear Urine pH 6.0 Ur Specific [place] 1.020 Urine Protein Negative Urine Glucose (UA) Normal Urine Ketones Trace Urine Blood Negative Urine Nitrate Negative Urine Bilirubin Negative Urine Urobilinogen 4.0 Ur Leukocyte Esterase Neg Urine WBC (Auto) 1 Urine RBC (Auto) 2 Ur Squamous Epith Cells 1 Salicylates Urine Opiates Screen Urine Methadone Screen Acetaminophen Ur Barbiturates Screen Ur Phencyclidine Scrn Ur Amphetamines Screen U Benzodiazepines Scrn U Oth Cocaine Metabols U Cannabinoids Screen Alcohol, Quantitative 02/16/19 02/16/19 02/16/19 00:33 00:33 00:33 WBC RBC Hgb Hct MCV MCH MCHC RDW Plt Count MPV Neut % (Auto) Lymph % (Auto) [place] % (Auto) Eos % (Auto) Baso % (Auto) Neut # (Auto) Lymph # (Auto) [place] # (Auto) Eos # (Auto) Baso # (Auto) Sodium 141 Potassium 3.7 Chloride 103 Carbon Dioxide 27 Anion Gap 14 BUN 17 Creatinine 0.6 L Est GFR ( Amer) > 60 Est GFR (Non-Af Amer) > 60 POC Glucose (mg/dL) Random Glucose 81 D Calcium 9.6 Phosphorus 3.6 Magnesium 1.7 Total Bilirubin 0.5 AST 40 ALT 39 Alkaline Phosphatase 64 Total Protein 7.9 Albumin 4.1 Globulin 3.7 Albumin/Globulin Ratio 1.1 Urine Color Urine Clarity Urine pH Ur Specific [place] Urine Protein Urine Glucose (UA) Urine Ketones Urine Blood Urine Nitrate Urine Bilirubin Urine Urobilinogen Ur Leukocyte Esterase Urine WBC (Auto) Urine RBC (Auto) Ur Squamous Epith Cells Salicylates < 1.0 Urine Opiates Screen Positive H Urine Methadone Screen Negative Acetaminophen < 10.0 L Ur Barbiturates Screen Negative Ur Phencyclidine Scrn Negative Ur Amphetamines Screen Negative U Benzodiazepines Scrn Negative U Oth Cocaine Metabols Positive H U Cannabinoids Screen Negative Alcohol, Quantitative < 10 02/16/19 02:48 WBC RBC Hgb Hct MCV MCH MCHC RDW Plt Count MPV Neut % (Auto) Lymph % (Auto) [place] % (Auto) Eos % (Auto) Baso % (Auto) Neut # (Auto) Lymph # (Auto) [place] # (Auto) Eos # (Auto) Baso # (Auto) Sodium Potassium Chloride Carbon Dioxide Anion Gap BUN Creatinine Est GFR ( Amer) Est GFR (Non-Af Amer) POC Glucose (mg/dL) 201 H Random Glucose Calcium Phosphorus Magnesium Total Bilirubin AST ALT Alkaline Phosphatase Total Protein Albumin Globulin Albumin/Globulin Ratio Urine Color Urine Clarity Urine pH Ur Specific [place] Urine Protein Urine Glucose (UA) Urine Ketones Urine Blood Urine Nitrate Urine Bilirubin Urine Urobilinogen Ur Leukocyte Esterase Urine WBC (Auto) Urine RBC (Auto) Ur Squamous Epith Cells Salicylates Urine Opiates Screen Urine Methadone Screen Acetaminophen Ur Barbiturates Screen Ur Phencyclidine Scrn Ur Amphetamines Screen U Benzodiazepines Scrn U Oth Cocaine Metabols U Cannabinoids Screen Alcohol, Quantitative Assessment & Plan - Assessment and Plan (Free Text) Assessment: 53 year old male with pmhx of seizure disorder, alcohol/opioid abuse, DM2, HTN admitted for detox, transferred to floor s/p seizures Plan: Seizure d/o likely 2/2 withdrawal -transfer to med/surg -neuro checks -seizure precautions -given ativan 2mg IM x2 during seizure like activity -ativan 1mg iv prn seizures -restart home Dilantin 100mg TID -Neuro consult, Dr. Meyer Alcohol use d/o -continue with librium taper -CIWA protocol -clonidine 0.1mg po q4h prn DM2 -hold home meds -ISS-low -accuchecks ACHS -hypoglycemia protocol HTN -stable -no known home meds -continue to monitor Ppx GI: Pepcid VTE: SCDs Discussed w/ Dr. Chavira -Freida Sahu, PGY-1 <Earnest Chavira - Last Filed: 02/16/19 06:22> Results - Vital Signs Recent Vital Signs: Last Vital Signs Temp 98.3 F 02/16/19 05:04 Pulse 82 05/13/19 05:04 Resp 20 02/16/19 05:04 BP 108/66 02/16/19 05:04 Pulse Ox 97 02/16/19 05:04 - Labs Result Diagrams: 02/16/19 00:33 02/16/19 00:33 Labs: Laboratory Results - last 24 hr 02/16/19 02/16/19 02/16/19 00:08 00:33 00:33 WBC 7.1 RBC 4.27 L Hgb 13.3 Hct 38.3 MCV 89.6 MCH 31.2 H MCHC 34.8 RDW 13.8 Plt Count 287 MPV 8.1 Neut % (Auto) 54.4 Lymph % (Auto) 27.4 [place] % (Auto) 13.4 H Eos % (Auto) 3.9 Baso % (Auto) 0.9 Neut # (Auto) 3.9 Lymph # (Auto) 2.0 [place] # (Auto) 1.0 H Eos # (Auto) 0.3 Baso # (Auto) 0.1 Sodium Potassium Chloride Carbon Dioxide Anion Gap BUN Creatinine Est GFR ( Amer) Est GFR (Non-Af Amer) POC Glucose (mg/dL) 93 Random Glucose Calcium Phosphorus Magnesium Total Bilirubin AST ALT Alkaline Phosphatase Total Protein Albumin Globulin Albumin/Globulin Ratio Urine Color Yellow Urine Clarity Clear Urine pH 6.0 Ur Specific [place] 1.020 Urine Protein Negative Urine Glucose (UA) Normal Urine Ketones Trace Urine Blood Negative Urine Nitrate Negative Urine Bilirubin Negative Urine Urobilinogen 4.0 Ur Leukocyte Esterase Neg Urine WBC (Auto) 1 Urine RBC (Auto) 2 Ur Squamous Epith Cells 1 Salicylates Urine Opiates Screen Urine Methadone Screen Acetaminophen Ur Barbiturates Screen Ur Phencyclidine Scrn Ur Amphetamines Screen U Benzodiazepines Scrn U Oth Cocaine Metabols U Cannabinoids Screen Alcohol, Quantitative 02/16/19 02/16/19 02/16/19 00:33 00:33 00:33 WBC RBC Hgb Hct MCV MCH MCHC RDW Plt Count MPV Neut % (Auto) Lymph % (Auto) [place] % (Auto) Eos % (Auto) Baso % (Auto) Neut # (Auto) Lymph # (Auto) [place] # (Auto) Eos # (Auto) Baso # (Auto) Sodium 141 Potassium 3.7 Chloride 103 Carbon Dioxide 27 Anion Gap 14 BUN 17 Creatinine 0.6 L Est GFR ( Amer) > 60 Est GFR (Non-Af Amer) > 60 POC Glucose (mg/dL) Random Glucose 81 D Calcium 9.6 Phosphorus 3.6 Magnesium 1.7 Total Bilirubin 0.5 AST 40 ALT 39 Alkaline Phosphatase 64 Total Protein 7.9 Albumin 4.1 Globulin 3.7 Albumin/Globulin Ratio 1.1 Urine Color Urine Clarity Urine pH Ur Specific [place] Urine Protein Urine Glucose (UA) Urine Ketones Urine Blood Urine Nitrate Urine Bilirubin Urine Urobilinogen Ur Leukocyte Esterase Urine WBC (Auto) Urine RBC (Auto) Ur Squamous Epith Cells Salicylates < 1.0 Urine Opiates Screen Positive H Urine Methadone Screen Negative Acetaminophen < 10.0 L Ur Barbiturates Screen Negative Ur Phencyclidine Scrn Negative Ur Amphetamines Screen Negative U Benzodiazepines Scrn Negative U Oth Cocaine Metabols Positive H U Cannabinoids Screen Negative Alcohol, Quantitative < 10 02/16/19 02:48 WBC RBC Hgb Hct MCV MCH MCHC RDW Plt Count MPV Neut % (Auto) Lymph % (Auto) [place] % (Auto) Eos % (Auto) Baso % (Auto) Neut # (Auto) Lymph # (Auto) [place] # (Auto) Eos # (Auto) Baso # (Auto) Sodium Potassium Chloride Carbon Dioxide Anion Gap BUN Creatinine Est GFR ( Amer) Est GFR (Non-Af Amer) POC Glucose (mg/dL) 201 H Random Glucose Calcium Phosphorus Magnesium Total Bilirubin AST ALT Alkaline Phosphatase Total Protein Albumin Globulin Albumin/Globulin Ratio Urine Color Urine Clarity Urine pH Ur Specific [place] Urine Protein Urine Glucose (UA) Urine Ketones Urine Blood Urine Nitrate Urine Bilirubin Urine Urobilinogen Ur Leukocyte Esterase Urine WBC (Auto) Urine RBC (Auto) Ur Squamous Epith Cells Salicylates Urine Opiates Screen Urine Methadone Screen Acetaminophen Ur Barbiturates Screen Ur Phencyclidine Scrn Ur Amphetamines Screen U Benzodiazepines Scrn U Oth Cocaine Metabols U Cannabinoids Screen Alcohol, Quantitative Assessment & Plan - Date & Time Date: 02/16/19 (I have seen and examined the patient. I agree with the findings and plan of care as documented by Dr. Sahu. Patient in detox when rapid response called due to seizure activity. History of seizure disorder. Ativan given stat. Patiently initially denied seizure history to staff. Check CT head due to possible head injury. Alcohol abuse. Withdrawal likely exacerbated seizure disorder. CIWA protocol. Continue home meds when verified. Neuro consult. History of diabetes. NISS and accuchecks. Monitor for acute changes.) Time: 06:21 Attending/Attestation - Attestation I have personally seen and examined this patient.: Yes I have fully participated in the care of the patient.: Yes I have reviewed all pertinent clinical information: Yes
--- NOTE | 2019-02-16 03:23 | PCM.RRT ---
[facility] Nurses Assessment - Situation Date: 02/16/19 Time [facility] was called: 02:37 [facility] Responder Arrival Time:: 02:38 [facility] Location:: Med/Detox Room Number: hallway [facility] Reason for Call: Change in Mental Status [facility] Called By: RN - IV IV Inserted during [facility]?: No - Medication Medications Administered During [facility]: ativan 2mg IM x2 - Vital Signs Vital Signs: BP 128/67 HR 82 T 97.6 BG 201 - Recommendations 5) [facility] Level of Care Recommendations: transfer to med/surg I.Reason for [facility] - A) Acute Change in Patient: (Select all that apply): Acute change in mental status Subjective: [facility] called to patient in detox after sustaining a seizure. Nursing reports patient was in the hallway and sustained an unwitnessed seizure, falling to the ground. Patient was given ativan 2mg IM with cessation, however several seizures followed. Patient was able to respond in between episodes that he does not recall any seizure history. Seizures returned treated with another dose of ativan 2mg IM. Subsequently patient remembered having seizures and having been put on an unknown medication of which he is non-compliant with. Vitals during R RT: BP 128/67, HR 82, T 97.6, BG 201. - Respiratory Oxygen Delivery Method: Nasal Cannula @L/min - Constitutional Appears: Non-toxic, No Acute Distress, Confused - Head Head Exam: ATRAUMATIC, NORMAL INSPECTION, NORMOCEPHALIC - Eyes Eye Exam: EOMI, Normal appearance - Respiratory Exam Respiratory Exam: Clear to Ausculation Bilateral, NORMAL BREATHING PATTERN - Cardiovascular Exam Cardiovascular Exam: REGULAR RHYTHM. absent: Tachycardia - GI/Abdominal Exam GI & Abdominal Exam: Soft, Normal Bowel Sounds. absent: Distended - Neurological Exam Neurological Exam: Alert, Awake - Extremities Exam Extremities Exam: Normal Inspection. absent: Calf Tenderness, Pedal Edema Plan - Assessment of Findings&Treatment Plan 53 year old male admitted for detox, presenting with seizures -given ativan 2mg IM x2 -head CT to evaluate fall 2/2 unwitnessed seizure -resume home Dilantin 100mg po TID -transfer to med/surg -ativan 1mg IV prn seizures -seizure risk -WA protocol -neuro checks -Neuro consult, Dr. Meyer Discussed with Dr. Chavira -Freida Sahu, PGY-1
[2019-02-16] MEDS: (Novolin R) Insulin Human Regular 100 units/ml vial SC SCH ×4 (07:20→22:38)
[2019-02-16 07:56] LABS: BASO # 0.1 K/uL (0.0-0.2); BASO % 1.3 % (0.0-2.0); EOS # 0.3 K/uL (0.0-0.7); EOS % 6.1 % (0.0-4.0); HEMOGLOBIN 13.1 g/dL (12.0-18.0); LYMPH # 1.5 K/uL (1.0-4.3); LYMPH % 28.6 % (20.0-40.0); MEAN CELL VOLUME 90.9 fL (80.0-94.0); MEAN CORPUSCULAR HEMOGLOBIN 30.5 pg (27.0-31.0); MEAN CORPUSCULAR HGB CONC 33.6 g/dL (33.0-37.0); MEAN PLATELET VOLUME 8.2 fL (7.2-11.7); MONO # 0.7 K/uL (0.0-0.8); MONO % 13.5 % (0.0-10.0); NEUT # 2.6 K/uL (1.8-7.0); NEUT % 50.5 % (50.0-75.0); NRBC % 0.2 % (0.0-2.0); RBC 4.29 Mil/uL (4.40-5.90); RED CELL DISTRIBUTION WIDTH 13.9 % (11.5-14.5); WHITE BLOOD COUNT 5.2 K/uL (4.8-10.8)
--- NOTE | 2019-02-16 08:03 | PCM.RRT ---
<Osbaldo Damian - Last Filed: 02/16/19 16:18> TOOL MAKER BENCH Nurses Assessment - Situation Date: 02/16/19 Time TOOL MAKER BENCH was called: 07:50 TOOL MAKER BENCH Responder Arrival Time:: 07:50 TOOL MAKER BENCH Location:: Med/Surg Room Number: 556-B TOOL MAKER BENCH Reason for Call: Change in Mental Status (tonic clonic seizures) TOOL MAKER BENCH Called By: Physician (Resident Damian) - IV IV Inserted during TOOL MAKER BENCH?: No - Respiratory TOOL MAKER BENCH Delivery Method: Nasal Cannula @L/min - Medication Medications Administered During TOOL MAKER BENCH: ativan 2mg IM x1 - Stat Labs Ordered TOOL MAKER BENCH Other Labs Ordered: Lactate, CPK CPR started during TOOL MAKER BENCH?: No - Vital Signs Vital Signs: Rapid Response Vital Sign Blood Pressure 132/76 Pulse Rate 82 Respiratory Rate 20 Temperature 98.6 F Oxygen Saturation 98 - Time TOOL MAKER BENCH Ended Time TOOL MAKER BENCH Ended: 02:55 - Vital Signs at end of TOOL MAKER BENCH Vital Signs at end of TOOL MAKER BENCH: Rapid Response End Vital Sign Blood Pressure 136/86 Pulse Rate 86 Respiratory Rate 24 Temperature 98.8 F O2 Sat by Pulse Oximetry 98 - Recommendations 5) TOOL MAKER BENCH Level of Care Recommendations: Remain in current setting Notifications: Attending Physician, Consultations (ICU, Dr. Méndez. Neuro, Dr. Allison.) I.Reason for TOOL MAKER BENCH - A) Acute Change in Patient: Other reason for calling TOOL MAKER BENCH:: Seizure activity - Neurological Status (Select all that apply): Confused. absent: Responsive, Oriented, Verbal, Follows Commands - Respiratory Oxygen Delivery Method: Nasal Cannula @L/min - Constitutional Appears: Non-toxic, No Acute Distress (exam is post-seizure activity and post- ativan administration) - Head Head Exam: ATRAUMATIC, NORMAL INSPECTION - Eyes Additional Comments: Dilated but reactive - Respiratory Exam Respiratory Exam: Clear to Ausculation Bilateral. absent: Rales, Rhonchi, Wheezes, Respiratory Distress - Cardiovascular Exam Cardiovascular Exam: REGULAR RHYTHM, +S1, +S2 - GI/Abdominal Exam GI & Abdominal Exam: Soft, Normal Bowel Sounds. absent: Distended, Firm, Guarding, Rigid, Tenderness - Neurological Exam Neurological Exam: Alert, Awake, CN II-XII Intact, Oriented x3 Additional exam: 5/5 strength in upper and lower extremities bilaterally normal babinski bilaterally - Extremities Exam Extremities Exam: Normal Capillary Refill, Normal Inspection Additional comments: finger and toe clubbing Plan - Assessment of Findings&Treatment Plan 53 year old male with pmhx of seizure disorder, alcohol/opioid abuse, DM2, HTN admitted for detox, transferred to floor s/p seizures. Another TOOL MAKER BENCH was called at 1015 for seizure activity. Pt received Ativan 2 mg IVP. Plan: Seizure disorder Consider pseudoseizures as a possiblity Lactate normal, CPK normal after seizure-like activity Likely worsened/precipitated by EtOH and BZD withdrawal (reports he takes Kl onopin at home but stopped recently) Tele monitor Neuro checks Seizure precautions Ativan IVP Taper 02/16-02/22 8:00 am Ativan 2 mg IM Q4H PRN seizure activity Dilantin ER 100 mg PO TID UDS positive for opiates, cocaine metabolites. EtOH<[address] shows no acute intracranial pathology. Sinus mucosal disease. Neurology, Dr. Allison, consulted. Loading doses: of Keppra 1000mg IV, Dilantin 1000 mg IV. Maintenance doses: Keppra 500 mg IV Q12, Dilantin 100 mg IV TID. F/u Dilantin level, Keppra level, 24 hour video eeg Alcohol abuse Last used yesterday (05/18) as per pt EtOH<10 on admission Ativan taper as above Librium taper discontinued CIWA protocol Clonidine 0.1mg po q4h prn Opioid abuse Psychiatry, Dr. Rangel, consulted for potential Methadone taper Continue Catapress 0.1 mg PO Q4H PRN as per Psych Cocaine abuse Currently hemodynamically stable Will avoid beta blockers Hx of schizophrenia Hx of taking Abilify as per pt No active psychosis appreciated during interview Psychiatry consulted Nicotine addictions Nicotine patch DM2 Hold home meds ISS-low Accuchecks ACHS Hypoglycemia protocol F/u HgbA1c, TSH, FT4 HTN Stable No known home meds Avoid beta blockers Continue to monitor Ppx GI: Pepcid VTE: SCDs PT Case discussed with Dr. Jon Damian PGY1 <Kulwinder Salter - Last Filed: 02/16/19 17:45> TO[employer] MAKER [employer]ENCH Nurses Assessment - Vital Signs Vital Signs: Rapid Response Vital Sign Blood Pressure 98/62 Pulse Rate 20 Respiratory Rate 20 Temperature 98.2 F Oxygen Saturation 98 - Vital Signs at end of TOOL MAKER BENCH Vital Signs at end of TOOL MAKER BENCH: Rapid Response End Vital Sign Blood Pressure 110/82 Pulse Rate 81 Respiratory Rate 22 Temperature 98.0 F O2 Sat by Pulse Oximetry 98 Attending/Attestation - Attestation I have personally seen and examined this patient.: Yes I have fully participated in the care of the patient.: Yes I have reviewed all pertinent clinical information, including history, physical exam and plan: Yes Notes (Text): 02/16/19 17:42 This patient was seen and care was discussed with Dr. Damian at the time of both testboard operator. Discussed with ICU Physician Dr. Méndez and I do not feel that ICU monitoring is warranted at this time: after each TOOL MAKER BENCH, patient was slightly confused but th en when going back and checking in on him he is awake and asking for food. Spoke with Dr. Neurology Dr. Allison: recommends Video EEG which has been started. Kulwinder Salter D.O.
--- NOTE | 2019-02-16 08:20 | CT ---
Date of service: 02/16/2019 PROCEDURE: CT HEAD WITHOUT CONTRAST. HISTORY: Seizure. COMPARISON: 09/19/2018 TECHNIQUE: Axial computed tomography images were obtained through the head/brain without intravenous contrast. Radiation dose: Total exam DLP = 1254.07 mGy-cm. This CT exam was performed using one or more of the following dose reduction techniques: Automated exposure control, adjustment of the mA and/or kV according to patient size, and/or use of iterative reconstruction technique. FINDINGS: HEMORRHAGE: No intracranial hemorrhage. BRAIN: No mass effect or edema. Scattered focal lucencies in the subcortical and periventricular white matter suggestive for chronic microvascular ischemic change. VENTRICLES: Unremarkable. No hydrocephalus. CALVARIUM: Unremarkable. PARANASAL SINUSES: Moderate to severe mucosal thickening of the right maxillary sinus. Mild mucosal thickening of the ethmoid air cells. MASTOID AIR CELLS: Unremarkable as visualized. No inflammatory changes. OTHER FINDINGS: None. IMPRESSION: No acute intracranial abnormality. Sinus mucosal disease. If symptoms persists, consider correlation with MRI. A preliminary report was generated at 5:20 a.m. on 02/16/[address] Marco Walden from [employer].
[2019-02-16 08:21] LABS: ALB/GLOB RATIO 1.1 (1.0-2.1); ALBUMIN 3.6 g/dL (3.5-5.0); ALT/SGPT 33 U/L (21-72); AST/SGOT 36 U/L (17-59); BLOOD UREA NITROGEN 20 mg/dL (9-20); CALCIUM 8.9 mg/dl (8.6-10.4); GFR NON-AFRICAN AMERICAN > 60
[2019-02-16 08:21] LABS: ABG ALLEN TEST YES; ARTERIAL BLOOD GAS HCO3 26.1 mmol/L (21-28); ARTERIAL BLOOD GAS HEMOGLOBIN 11.6 g/dL (11.7-17.4); ARTERIAL BLOOD GAS O2 SAT 97.9 % (95-98); ARTERIAL BLOOD GAS PCO2 39 mm/Hg (35-45); ARTERIAL BLOOD GAS PH 7.43 (7.35-7.45); ARTERIAL BLOOD GAS PO2 161 mm/Hg (80-100); ARTERIAL BLOOD GAS TCO2 27.1 mmol/L (22-28)
[2019-02-16] MEDS: Magnesium Sulfate 1 gm in D5W 1 GM/100 ML BAG IVPB SCH ×2 (09:07→12:49)
--- NOTE | 2019-02-16 09:10 | RAD ---
Date of service: 02/16/2019 HISTORY: Detox/Psy COMPARISON: None available. TECHNIQUE: 1 view obtained. FINDINGS: LUNGS: No active pulmonary disease. PLEURA: No significant pleural effusion identified, no pneumothorax apparent. CARDIOVASCULAR: No aortic atherosclerotic calcification present. Normal cardiac size. No pulmonary vascular congestion. OSSEOUS STRUCTURES: No significant abnormalities. VISUALIZED UPPER ABDOMEN: Normal. OTHER FINDINGS: None. IMPRESSION: No active disease.
[2019-02-16] MEDS ORDERED: levETIRAcetam 500 MG in Sodium Chloride 0.9% 100 ML IVPB SCH ×2 (10:45→22:00)
[2019-02-16] MEDS ORDERED: levETIRAcetam 1,000 MG in Sodium Chloride 0.9% 100 ML IVPB ONE (11:15)
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
[2019-02-16] MEDS ORDERED: Phenytoin 100 mg/2 ml Inj IVP SCH (14:00)
[2019-02-17 06:49] LABS: HEMOGLOBIN 12.1 g/dL (12.0-18.0); MEAN CELL VOLUME 91.1 fL (80.0-94.0); MEAN CORPUSCULAR HEMOGLOBIN 30.5 pg (27.0-31.0); MEAN CORPUSCULAR HGB CONC 33.5 g/dL (33.0-37.0); RBC 3.97 Mil/uL (4.40-5.90); RED CELL DISTRIBUTION WIDTH 13.9 % (11.5-14.5); WHITE BLOOD COUNT 5.5 K/uL (4.8-10.8)
[2019-02-17 06:50] LABS: BASO % 0.2 % (0.0-2.0); EOS # 0.3 K/uL (0.0-0.7); EOS % 5.4 % (0.0-4.0); LYMPH # 2.3 K/uL (1.0-4.3); LYMPH % 41.3 % (20.0-40.0); MEAN PLATELET VOLUME 8.4 fL (7.2-11.7); MONO # 0.7 K/uL (0.0-0.8); MONO % 13.4 % (0.0-10.0); NEUT # 2.2 K/uL (1.8-7.0); NEUT % 39.7 % (50.0-75.0)
--- NOTE | 2019-02-17 07:19 | CP.PCM.PN ---
<NatiOsbaldo - Last Filed: 02/17/19 14:38> Subjective - Date & Time of Evaluation Date of Evaluation: 02/17/19 Time of Evaluation: 09:37 - Subjective Subjective: PGY1 Medicine progress note for Dr. Jon Salter Pt seen and examined at bedside. Overnight pt was noted by RN to have auditory and visual hallucinations of his daughter, he required ativan at that time. No acute complaints at this time. Pt denies headache, visual changes, dizziness, lightheadedness, fever, chills, chest pain, sob, abdominal pain, n/v/d, hematochezia, melena, homicidal ideations, suicidal ideations, visual or auditory hallucinations. Pt is requesting detox, psychiatric evaluation and treatment of PTSD. He states that he has difficulty getting over events of his past. Objective - Vital Signs/Intake and Output Vital Signs (last 24 hours): Temp Pulse Resp BP Pulse Ox 97.4 F L 68 20 102/58 L 98 02/16/19 23:42 02/17/19 03:00 02/16/19 23:42 02/17/19 03:00 02/16/19 23:42 Intake and Output: 02/17/19 02/17/19 06:59 18:59 Output Total 400 Balance -400 - Medications Medications: Current Medications Clonidine HCl (Catapres) 0.1 mg PO Q4H PRN PRN Reason: Alcohol withdrawal Dextrose (Dextrose 50% Inj) 0 ml IV STAT PRN; Protocol PRN Reason: Hypoglycemia Protocol Dextrose (Glutose 15) 0 gm PO ONCE PRN; Protocol PRN Reason: Hypoglycemia Protocol Famotidine (Pepcid) 20 mg PO DAILY [facility] Last Admin: 02/16/19 09:58 Dose: 20 mg Glucagon (Glucagen Diagnostic Kit) 0 mg IM STAT PRN; Protocol PRN Reason: Hypoglycemia Protocol Dextrose (Dextrose 5% In Water 1000 Ml) 1,000 mls @ 0 mls/hr IV .Q0M PRN; Protocol PRN Reason: Hypoglycemia Protocol Levetiracetam 500 mg/ Sodium (Chloride) 105 mls @ 420 mls/hr IVPB Q12H [facility] Phenytoin 100 mg/ Sodium (Chloride) 52 mls @ 104 mls/hr IVPB Q8 [facility] Insulin Human Regular (Novolin R) 0 unit SC ACHS [facility]; Protocol Last Admin: 05/13/19 22:38 Dose: Not Given Lorazepam (Ativan) 2 mg IM Q4H PRN PRN Reason: Seizure activity Last Admin: 02/17/19 03:12 Dose: 1 mg Lorazepam (Ativan) 2 mg PO Q4 [facility]; Taper Stop: 02/21/19 13:59 Last Admin: 02/17/19 05:10 Dose: 1 mg Nicotine (Nicoderm Cq) 1 patch TD DAILY [facility] Stop: 03/30/19 10:00 Last Admin: 02/16/19 09:59 Dose: 1 patch Trazodone HCl (Desyrel) 100 mg PO HS PRN PRN Reason: Insomnia Last Admin: 02/17/19 02:06 Dose: 100 mg - Labs Labs: 02/17/19 06:38 02/16/19 07:41 - Constitutional Appears: Non-toxic, No Acute Distress - Head Exam Head Exam: ATRAUMATIC, NORMAL INSPECTION Additional comments: (+) video eeg leads and dressing - Eye Exam Eye Exam: EOMI (nystagmus bilaterally) Additional comments: (+) dilated, reactive - ENT Exam ENT Exam: Mucous Membranes Moist Additional comments: (+) s/p right mandibular surgery with concavity - Respiratory Exam Respiratory Exam: Clear to Ausculation Bilateral. absent: Decreased Breath Sounds, Rales, Rhonchi, Wheezes, Respiratory Distress, Stridor - Cardiovascular Exam Cardiovascular Exam: REGULAR RHYTHM, +S1, +S2. absent: Tachycardia - GI/Abdominal Exam GI & Abdominal Exam: Soft. absent: Firm, Guarding, Rigid, Tenderness, Normal Bowel Sounds - Extremities Exam Extremities Exam: absent: Calf Tenderness, Pedal Edema, Tenderness Additional comments: minimal tremors bilateral upper extremities (+) toe and finger clubbing - Back Exam Back Exam: NORMAL INSPECTION - Neurological Exam Neurological Exam: Alert, Awake, CN II-XII Intact, Oriented x3 Neuro motor strength exam: Left Upper Extremity: 5, Right Upper Extremity: 5, Left Lower Extremity: 5, Right Lower Extremity: 5 - Psychiatric Exam Psychiatric exam: Normal Affect, Normal Mood. absent: Homicidal Ideation, Suicidal Ideation - Skin Skin Exam: Dry, Normal Color, Warm Assessment and Plan - Assessment and Plan (Free Text) Assessment: 53 year old male with pmhx of seizure disorder, alcohol/opioid abuse, DM2, HTN admitted for detox, transferred to floor s/p seizures. Plan: Seizure disorder Lactate normal, CPK normal after seizure-like activity Likely worsened/precipitated by EtOH and BZD withdrawal (reports he takes Klonopin at home but stopped recently) Tele monitor will be discontinued Neuro checks will be discontinued Seizure precautions will be discontinued Ativan PO Taper as per Psych Ativan 2 mg IM Q4H PRN seizure activity UDS positive for opiates, cocaine metabolites. EtOH<[address] shows no acute intracranial pathology. Sinus mucosal disease. Neurology, Dr. Allison, consulted. Dilantin ER 100 mg PO TID, home medications is Dilantin 100 mg PO 5x/day Keppra 500 mg PO Q12, this is pt's home medication as well Dilantin level is low at <0.3 24 hour video EEG is normal as per reading; pending Dr. Lee'as review. Alcohol abuse Last used (05/18) as per pt EtOH<10 on admission Ativan taper as above CI[facility] protocol Clonidine 0.1mg po q4h prn Opioid abuse Psychiatry, Dr. Rangel, consulted. Will accept pt to detox floor Continue Catapress 0.1 mg PO Q4H PRN as per Psych Cocaine abuse Currently hemodynamically stable Will avoid beta blockers Hx of psychiatric illness Hx schizophrenia Hx PTSD As per pt'spharmacy: Abilify 15 mg PO daily, Vistaril 25 mg PO TID, Trazodone 100 mg PO QHS, Psychiatry consulted, will manage Nicotine addictions Nicotine patch IDM2 HgbA1c is 5.8 Pt sugars have been well controlled without medication while inpatient Hold home Amaryl 2 mg PO QD, Metformin 1000 mg PO BID Hold home Humulog 10 u SC ACTID, Lantus 20 u QD Continue home Gabapentin 300 mg PO once daily ISS-low Accuchecks ACHS Hypoglycemia protocol TSH, FT4 are normal at 0.53, 1.41 HTN Stable Hold home Cozaar 50 mg po QD as he is normotensive during hospital stay Avoid beta blockers Continue to monitor Hx HLD Continue home Lovaza 2g BID Ppx GI: Pepcid VTE: SCDs, Heparin SC 5000 units q12 PT Pharmacy [facility] in [facility] contacted with permission of pt. All medications confirmed as above. Plan: pt is medically stable for transfer to detox; pending clearance by Neurology. Case discussed with Dr. Jon Damian PGY1 <Kulwinder Salter - Last Filed: 02/17/19 17:15> Objective - Vital Signs/Intake and Output Vital Signs (last 24 hours): Temp Pulse Resp BP Pulse Ox 97.6 F 69 18 100/64 96 02/17/19 08:07 02/17/19 08:40 02/17/19 08:07 02/17/19 08:07 02/17/19 08:07 Intake and Output: 02/17/19 02/17/19 06:59 18:59 Output Total 400 Balance -400 - Labs Labs: 02/17/19 06:38 02/17/19 06:38 Attending/Attestation - Attestation I have personally seen and examined this patient.: Yes I have fully participated in the care of the patient.: Yes I have reviewed all pertinent clinical information, including history, physical exam and plan: Yes Notes (Text): 02/17/19 17:13 Patient was seen and examined at 12:00 PM 556 B 02/17/19 Care of this patient was gone over in detail with resident Dr. Damian. Kulwinder Salter D.O.
[2019-02-17 07:21] LABS: ALB/GLOB RATIO 1.2 (1.0-2.1); ALBUMIN 3.6 g/dL (3.5-5.0); ALT/SGPT 27 U/L (21-72); AST/SGOT 37 U/L (17-59); BLOOD UREA NITROGEN 21 mg/dL (9-20); CALCIUM 8.7 mg/dl (8.6-10.4); GFR NON-AFRICAN AMERICAN > 60; HDL CHOLESTEROL 60 mg/dL (30-70)
[2019-02-17 07:32] LABS: LDL CHOLESTEROL 55 mg/dL (0-129)
[2019-02-17] MEDS: (Novolin R) Insulin Human Regular 100 units/ml vial SC SCH ×2 (07:34→12:20)
[2019-02-17 08:08] VITALS: BP 100/64; TEMP 97.6; O2SAT 96
[2019-02-17 08:10] VITALS: RESP 18
[2019-02-17 08:42] VITALS: PULSE 69
--- NOTE | 2019-02-17 09:49 | PCM.VEEG ---
Video EEG - Procedure Start Date: 02/16/19 Start Time: 12:15 End Date: 02/17/19 End Time: 09:00 Technical Summary: DATA ACQUISITION: This was a multichannel inpatient video-EEG, a minimum of 22 channels were uti lized, performed in accordance with recommendations specified by the [place] [employer] (Enid Roblero et al. ACNS Guideline 1: Minimum Technical Requirements for Performing Clinical Electroencephalography. Journal of Clinical Neurophysiology 2016;33:303-7). The 10-20 electrode placement system was utilized in accordance with guidelines detailed by the International Federation of Clinical Neurophysiology (Belle Arizmendi et al. The Ten-Twenty Electrode System of the International Federation. Recommendations for the Practice of Clinical Neurophysiology: Guidelines of the International Federation of Clinical Physiology 1999; EEG Suppl. 52.). DATA REVIEW / SPIKE DETECTION / DIGITAL ANALYSIS: The entire EEG was scanned and reviewed. Synchronized audio and video recording were reviewed at the time of each alarm and whenever an abnormality or suspicious activity was noted. The entire recording was analyzed utilizing an automated digital spike and seizure analysis program and all automatic spike and seizure detections were manually reviewed. A compressed spectral array was displayed and reviewed alongside the raw EEG tracings. In addition, further analysis of the EEG was performed when abnormalities were identified, including montage changes, dipole source localization, and frequency band identification. Video portion of the study is necessary to correlate abnormal EEG activity with clinical behavior. This study was attended 24 hours per day. - Interpretation Description of the study: Indication; event/seizures characterization. EEG Finding during wakefulness: During active states, the EEG was characterized by 14-25 Hz, 15-30 uV activity bilaterally in fronto-central regions. Resting wakefulness was characterized by a symmetric posterior dominant rhythm of 9 to 10 Hz, 30-50 uV, which was reactive to eye opening and closing. Drowsiness was associated with slow roving eye movements, slowing and fragmentation of the posterior dominant rhythm, and bilateral 4-7 Hz, 40-70 uV theta activity, sometimes with a shifting predominance. Hyperventilation and photic stimulation were not performed. EEG Finding during sleep: Light sleep was recorded and was characterized by fronto-central slowing at 5-7 H, 50-125 uV, sharp central vertex waves, bilateral sleep spindles, and K- complexes; shifting asymmetries were evident. Deeper stages of sleep were recorded and were characterized an increasing frequency of 1-4 Hz, 50-100 uV delta activity.. There were no significant asymmetries noted during sleep. Interictal non-epileptiform abnormalities: None Interictal epileptiform abnormalities: None Ictal epileptiform abnormalities: None - Impression Impression: This is a normal Video EEG monitoring study.
[2019-02-17] MEDS ORDERED: levETIRAcetam 500 MG in Sodium Chloride 0.9% 100 ML IVPB SCH (10:00)
--- NOTE | 2019-02-17 10:32 | CP.PCM.PN ---
Subjective - Date & Time of Evaluation Date of Evaluation: 02/17/19 Time of Evaluation: 10:32 - Subjective Subjective: PGY-1 Neurology progress note for Dr Allison Patient seen and examined at bedside. As per overnight nurses note, patient had episodes of hallucination, seeing patient's daugther who is . Patient admits to hallucinations as well earlier today, states he wants to hurt himself when seeing his daughter. Patient denies hallucination, SI or HI at time of encounter. No seizure activities reported in 24 hours, video eeg in progress s britt yesterday. Denies headache, dizziness or weakness. Patient states wants to go to detox. Objective - Vital Signs/Intake and Output Vital Signs (last 24 hours): Temp Pulse Resp BP Pulse Ox 97.6 F 69 18 100/64 96 02/17/19 08:07 02/17/19 08:40 02/17/19 08:07 02/17/19 08:07 02/17/19 08:07 Intake and Output: 02/17/19 02/17/19 06:59 18:59 Output Total 400 Balance -400 - Medications Medications: Current Medications Clonidine HCl (Catapres) 0.1 mg PO Q4H PRN PRN Reason: Alcohol withdrawal Dextrose (Dextrose 50% Inj) 0 ml IV STAT PRN; Protocol PRN Reason: Hypoglycemia Protocol Dextrose (Glutose 15) 0 gm PO ONCE PRN; Protocol PRN Reason: Hypoglycemia Protocol Famotidine (Pepcid) 20 mg PO DAILY [facility] Last Admin: 02/17/19 09:47 Dose: 20 mg Glucagon (Glucagen Diagnostic Kit) 0 mg IM STAT PRN; Protocol PRN Reason: Hypoglycemia Protocol Heparin Sodium (Porcine) (Heparin) 5,000 units SC Q12H [facility] Last Admin: 02/17/19 09:47 Dose: 5,000 units Dextrose (Dextrose 5% In Water 1000 Ml) 1,000 mls @ 0 mls/hr IV .Q0M PRN; Protocol PRN Reason: Hypoglycemia Protocol Levetiracetam 500 mg/ Sodium (Chloride) 105 mls @ 420 mls/hr IVPB Q12H [facility] Last Admin: 02/17/19 09:07 Dose: 420 mls/hr Phenytoin 100 mg/ Sodium (Chloride) 52 mls @ 104 mls/hr IVPB Q8 [facility] Last Admin: 02/17/19 09:48 Dose: 104 mls/hr Insulin Human Regular (Novolin R) 0 unit SC ACHS [facility]; Protocol Last Admin: 02/17/19 07:34 Dose: Not Given Lorazepam (Ativan) 2 mg IM Q4H PRN PRN Reason: Seizure activity Last Admin: 02/17/19 03:12 Dose: 1 mg Lorazepam (Ativan) 2 mg PO Q4 [facility]; Taper Stop: 02/21/19 13:59 Last Admin: 02/17/19 08:02 Dose: 2 mg Nicotine (Nicoderm Cq) 1 patch TD DAILY [facility] Stop: 03/30/19 10:00 Last Admin: 02/17/19 09:47 Dose: 1 patch Trazodone HCl (Desyrel) 100 mg PO HS PRN PRN Reason: Insomnia Last Admin: 02/17/19 02:06 Dose: 100 mg - Labs Labs: 02/17/19 06:38 02/17/19 06:38 - Constitutional Appears: Non-toxic, No Acute Distress - Head Exam Head Exam: ATRAUMATIC, NORMAL INSPECTION, NORMOCEPHALIC Additional comments: dressing around head for video eeg - Eye Exam Eye Exam: EOMI, Normal appearance, PERRL Pupil Exam: NORMAL ACCOMODATION - ENT Exam ENT Exam: Mucous Membranes Moist, Normal Exam - Neurological Exam Neurological Exam: Alert, Awake, CN II-XII Intact, Oriented x3, Reflexes Normal Neuro motor strength exam: Left Upper Extremity: 5, Right Upper Extremity: 5, Left Lower Extremity: 5, Right Lower Extremity: 5 - Psychiatric Exam Psychiatric exam: Flat Affect Assessment and Plan - Assessment and Plan (Free Text) Plan: 53 year old male with history of multi substance abuse disorder with several episodes of epilepsy, currently on dilantin and keppra, video eeg shows normal results. Patient AMA this afternoon before eval by neuro attending. As per primary patient had emergency to attend, patient reports having dilantin and keppra at home. Case discussed with Dr Allison.
--- NOTE | 2019-02-17 12:14 | PCM.PSYCH ---
Initial Psychiatric Evaluation - Initial Psychiatric Evaluation Type of Admission: Voluntary Legal Status: Capacity Current Medications: Active Medications Generic Name Dose Route Start Last Admin Trade Name Freq PRN Reason Stop Dose Admin Clonidine HCl 0.1 mg 02/16/19 02:31 Catapres PO Q4H PRN Alcohol withdrawal Dextrose 0 ml 02/16/19 03:18 Dextrose 50% Inj IV STAT PRN Hypoglycemia Protocol Protocol Dextrose 0 gm 02/16/19 03:18 Glutose 15 PO ONCE PRN Hypoglycemia Protocol Protocol Famotidine 20 mg 02/16/19 10:00 02/17/19 09:47 Pepcid PO 20 mg DAILY [facility] Administration Glucagon 0 mg 02/16/19 03:18 Glucagen Diagnostic Kit IM STAT PRN Hypoglycemia Protocol Protocol Heparin Sodium (Porcine) 5,000 units 02/17/19 09:00 02/17/19 09:47 Heparin SC 5,000 units Q12H [facility] Administration Dextrose 1,000 mls @ 0 mls/hr 02/16/19 03:18 Dextrose 5% In Water 1000 Ml IV .Q0M PRN Hypoglycemia Protocol Protocol Per Protocol Levetiracetam 500 mg/ Sodium 105 mls @ 420 mls/hr 02/17/19 10:00 02/17/19 09:07 Chloride IVPB 420 mls/hr Q12H [facility] Administration Phenytoin 100 mg/ Sodium 52 mls @ 104 mls/hr 02/17/19 10:00 02/17/19 09:48 Chloride IVPB 104 mls/hr Q8 [facility] Administration Insulin Human Regular 0 unit 02/16/19 07:30 02/17/19 07:34 Novolin R SC Not Given ACHS [facility] Protocol Lorazepam 2 mg 02/16/19 08:05 02/17/19 03:12 Ativan IM 1 mg Q4H PRN Administration Seizure activity Lorazepam 2 mg 02/16/19 14:00 02/17/19 08:02 Ativan PO 02/21/19 13:59 2 mg Q4 [facility] Administration Taper Nicotine 1 patch 02/16/19 10:00 02/17/19 09:47 Nicoderm Cq TD 03/30/19 10:00 1 patch DAILY [facility] Administration Trazodone HCl 100 mg 02/16/19 02:31 02/17/19 02:06 Desyrel PO 100 mg HS PRN Administration Insomnia Past Psychiatric History - Past Psychiatric History Pertinent Medical Hx (Current Medical&Sleep Prob, Allergies): Allergies Allergy/AdvReac Type Severity Reaction Status Date / Time aripiprazole [From Abilify] Allergy Mild Verified 02/15/19 23:55 chlorpromazine HCl Allergy Verified 02/15/19 23:55 [From Thorazine] haloperidol [From Haldol] Allergy Verified 02/15/19 23:55 haloperidol lactate Allergy Verified 02/15/19 23:55 [From Haldol] risperidone [From Risperdal] Allergy Verified 02/15/19 23:55 Humalog 10 units SQ TID 10/22/15 Lantus 15 units SQ HS 10/22/15 Olanzapine [Zyprexa] 20 mg PO DAILY 10/22/15 Zoloft 100 mg PO DAILY 10/22/15 ARIPiprazole [Abilify] 10 mg PO HS #30 tab 10/28/15 Insulin Aspart, Recombinant [Novolog] 10 unit SC ACTID #1 unit 10/28/15 Phenytoin, Extended [Dilantin] 100 mg PO TID #90 cer 10/28/15 Prazosin HCl [Minipress] 2 mg PO HS #30 cap 10/28/15 metFORMIN [glucOPHAGE] 1,000 mg PO BIDCC #60 tab 10/28/15 Hydroxyzine HCl 100 mg PO BID 02/10/16
[2019-02-17] MEDS ORDERED: Phenytoin 100 mg/4 ml Oral Susp UD PO ONE (14:00)
--- NOTE | 2019-02-17 14:41 | CP.PCM.DIS ---
<NatiOsbaldo - Last Filed: 02/17/19 14:39> Provider - Provider Date of Admission: 02/16/19 01:41 Attending physician: Earnest Chavira MD Consults: 02/16/19 07:47 Psychiatry Consult Routine Comment: Consulting Provider: Ronald Rangel Consulting Physician: Ronald Rangel Reason for Consult: EtOH withdrawal, Opiate withdrwal, schizophrenia 02/16/19 08:00 Neurology Consult Routine Comment: Consulting Provider: Tamar Meyer Consulting Physician: Tamar Meyer Reason for Consult: seizures Time Spent in preparation of Discharge (in minutes): 35 Diagnosis - Discharge Diagnosis (1) Schizophrenia Status: Chronic (2) Seizure disorder Status: Chronic (3) IDDM (insulin dependent diabetes mellitus) Status: Chronic (4) Alcohol abuse Status: Chronic (5) Desire for detoxification Status: Acute (6) Cocaine abuse Status: Chronic (7) Heroin abuse Status: Chronic Hospital Course - Lab Results Lab Results: Most Recent Lab Values WBC 5.5 K/uL (4.8-10.8) 02/17/19 06:38 RBC 3.97 Mil/uL (4.40-5.90) L 02/17/19 06:38 Hgb 12.1 g/dL (12.0-18.0) 02/17/19 06:38 Hct 36.2 % (35.0-51.0) 02/17/19 06:38 MCV 91.1 fL (80.0-94.0) 02/17/19 06:38 MCH 30.5 pg (27.0-31.0) 02/17/19 06:38 MCHC 33.5 g/dL (33.0-37.0) 02/17/19 06:38 RDW 13.9 % (11.5-14.5) 02/17/19 06:38 Plt Count 282 K/uL (130-400) 02/17/19 06:38 MPV 8.4 fL (7.2-11.7) 02/17/19 06:38 Neut % (Auto) 39.7 % (50.0-75.0) L 02/17/19 06:38 Lymph % (Auto) 41.3 % (20.0-40.0) H 02/17/19 06:38 [place] % (Auto) 13.4 % (0.0-10.0) H 02/17/19 06:38 Eos % (Auto) 5.4 % (0.0-4.0) H 02/17/19 06:38 Baso % (Auto) 0.2 % (0.0-2.0) 02/17/19 06:38 Neut # (Auto) 2.2 K/uL (1.8-7.0) 02/17/19 06:38 Lymph # (Auto) 2.3 K/uL (1.0-4.3) 02/17/19 06:38 [place] # (Auto) 0.7 K/uL (0.0-0.8) 02/17/19 06:38 Eos # (Auto) 0.3 K/uL (0.0-0.7) 02/17/19 06:38 Baso # (Auto) 0.0 K/uL (0.0-0.2) 02/17/19 06:38 Puncture Site Lra 02/16/19 08:10 pCO2 39 mm/Hg (35-45) 02/16/19 08:10 pO2 161 mm/Hg (80-100) H 02/16/19 08:10 HCO3 26.1 mmol/L (21-28) 02/16/19 08:10 ABG pH 7.43 (7.35-7.45) 02/16/19 08:10 ABG Total CO2 27.1 mmol/L (22-28) 02/16/19 08:10 ABG O2 Saturation 97.9 % (95-98) 02/16/19 08:10 ABG Base Excess 1.5 mmol/L (-2.0-3.0) 02/16/19 08:10 ABG Hemoglobin 11.6 g/dL (11.7-17.4) L 02/16/19 08:10 ABG Carboxyhemoglobin 1.2 % (0.5-1.5) 02/16/19 08:10 POC ABG HHb (Measured) 2.1 % (0.0-5.0) 02/16/19 08:10 ABG Methemoglobin 1.0 % (0.0-3.0) 02/16/19 08:10 Freddie Test Yes 02/16/19 08:10 Hgb O2 Saturation 95.7 % (95.0-98.0) 02/16/19 08:10 Liter Flow 3.0 02/16/19 08:10 Sodium 138 mmol/L (132-148) 02/17/19 06:38 Potassium 4.4 mmol/L (3.6-5.2) 02/17/19 06:38 Chloride 104 mmol/L (98-107) 02/17/19 06:38 Carbon Dioxide 26 mmol/L (22-30) 02/17/19 06:38 Anion Gap 13 (10-20) 02/17/19 06:38 BUN 21 mg/dL (9-20) H 02/17/19 06:38 Creatinine 0.7 mg/dL (0.8-1.5) L 02/17/19 06:38 Est GFR ( Amer) > 60 02/17/19 06:38 Est GFR (Non-Af Amer) > 60 02/17/19 06:38 POC Glucose (mg/dL) 101 mg/dL (65-110) 02/17/19 11:21 Random Glucose 94 mg/dL (75-110) 02/17/19 06:38 Hemoglobin A1c 5.8 % (4.2-6.5) 02/16/19 09:51 Lactic Acid 0.6 mmol/L (0.7-2.1) L 02/16/19 08:20 Calcium 8.7 mg/dl (8.6-10.4) 02/17/19 06:38 Phosphorus 4.1 mg/dL (2.5-4.5) 02/17/19 06:38 Magnesium 1.9 mg/dL (1.6-2.3) 02/17/19 06:38 Total Bilirubin 0.4 mg/dL (0.2-1.3) 02/17/19 06:38 AST 37 U/L (17-59) 02/17/19 06:38 ALT 27 U/L (21-72) 02/17/19 06:38 Alkaline Phosphatase 48 U/L (38-126) 02/17/19 06:38 Total Creatine Kinase 123 U/L (55-170) 02/16/19 08:20 Total Protein 6.7 g/dL (6.3-8.3) 02/17/19 06:38 Albumin 3.6 g/dL (3.5-5.0) 02/17/19 06:38 Globulin 3.1 gm/dL (2.2-3.9) 02/17/19 06:38 Albumin/Globulin Ratio 1.2 (1.0-2.1) 02/17/19 06:38 Triglycerides 64 mg/dL (0-149) 02/17/19 06:38 Cholesterol 130 mg/dL (0-199) 02/17/19 06:38 LDL Cholesterol Direct 55 mg/dL (0-129) 02/17/19 06:38 HDL Cholesterol 60 mg/dL (30-70) 02/17/19 06:38 Free T4 1.41 ng/dL (0.78-2.19) 02/16/19 11:16 TSH 3rd Generation 0.53 mIU/L (0.46-4.68) 02/16/19 08:20 Urine Color Yellow (YELLOW) 02/16/19 00:33 Urine Clarity Clear (Clear) 02/16/19 00:33 Urine pH 6.0 (5.0-8.0) 02/16/19 00:33 Ur Specific Upperco 1.020 (1.003-1.030) 02/16/19 00:33 Urine Protein Negative mg/dL (NEGATIVE) 02/16/19 00:33 Urine Glucose (UA) Normal mg/dL (Normal) 02/16/19 00:33 Urine Ketones Trace mg/dL (NEGATIVE) 02/16/19 00:33 Urine Blood Negative (NEGATIVE) 02/16/19 00:33 Urine Nitrate Negative (NEGATIVE) 02/16/19 00:33 Urine Bilirubin Negative (NEGATIVE) 02/16/19 00:33 Urine Urobilinogen 4.0 mg/dL (0.2-1.0) 02/16/19 00:33 Ur Leukocyte Esterase Neg Kar/uL (Negative) 02/16/19 00:33 Urine WBC (Auto) 1 /hpf (0-5) 02/16/19 00:33 Urine RBC (Auto) 2 /hpf (0-3) 02/16/19 00:33 Ur Squamous Epith Cells 1 /hpf (0-5) 02/16/19 00:33 Salicylates < 1.0 mg/dL 1 05/13/19 00:33 Urine Opiates Screen Positive (NEGATIVE) H 02/16/19 00:33 Urine Methadone Screen Negative (NEGATIVE) 02/16/19 00:33 Acetaminophen < 10.0 ug/mL (10.0-30.0) L 02/16/19 00:33 Ur Barbiturates Screen Negative (NEGATIVE) 02/16/19 00:33 Phenytoin < 3.0 ug/mL (10-20) L 02/16/19 11:16 Ur Phencyclidine Scrn Negative (NEGATIVE) 02/16/19 00:33 Ur Amphetamines Screen Negative (NEGATIVE) 02/16/19 00:33 U Benzodiazepines Scrn Negative (NEGATIVE) 02/16/19 00:33 U Oth Cocaine Metabols Positive (NEGATIVE) H 02/16/19 00:33 U Cannabinoids Screen Negative (NEGATIVE) 02/16/19 00:33 Alcohol, Quantitative < 10 mg/dl (0-10) 02/16/19 00:33 - Hospital Course Hospital Course: On admission: Patient is a 53 year old male w/ pmhx of alcohol and opioid abuse, seizure disorder, DM2, HTN who was admitted to detox, transferred to medicine s/p seizure activity on unit. Patient reports a history of seizure disorder in the past, treated with medication, but reports non-compliance. He says he's unable to recall when his last seizure was. Patient complains of persistent right sided jaw pain 2/2 a reported fracture. Patient currently denies complaints including headache, dizziness, weakness, chest pain, SOB, nausea Hospital course: Started on ativan taper, home dilantin. EtOH<10 on admission, UDS positive for cocaine metabolites, opiates. Head CT shows no acute intracranial pathology. Neurology, Dr. Allison, consulted. Pt had multiple lead setter called due to seizure activity, was treated with Ativan IM with resolution. He was minimally postictal for a short amount of time and regained normal neurological function shortly after each seizure activity. Dilantin level was far below therapeutic range. Pt was loaded with Keppra and Dilantin. A 24 hr video EEG ordered as per Neurology, and was read as normal. Neurology cleared pt for transfer to detox. Psychiatry, Dr. Rangel, consulted, who accepted the pt to voluntary detox once medically/neurologically cleared. At approximately 2 pm, Pt requesting to leave the hospital due to son attempting to commit suicide. This news was delivered by his aunt, who visited him today; confirmed by CANDICE Choi with aunt via telephone that she did in fact deliver him this news. Pt is AAOx3. Pt with capacity as per Dr. Rangel and Dr. Jon Salter. I offered him the option to complete detox treatment but he adamantly refused and is fully dressed to leave the hospital. He has been clinically seizure free for>24 hours, after being loaded with Keppra and Dilantin and maintained on those medications. No signs of withdrawal on today's examination. The video EEG was read as normal, and Neurology has cleared pt for transfer to detox. Pt reports that he has Keppra and Dilantin at home. I confirmed with pharmacy that these meds were picked up by pt on 02/11/19. He states he did not take these meds prior to coming in for detox because he was "not in the right state of mind." He currently feels better. Denies suicidal ideations, homicidal ideations, visual or auditory hallucinations. I stressed that he should stay away from alcohol, and illicit drugs as they may worsen his condition and can lead to . He relayed understands and states that he will not use them. He signed the AMA form in the presence of Dr. Jon Salter and myself, and left the hospital after IV access was removed. Pt provided with script for Tylenol 650 mg PO as needed for pain. This is a summary of the hospital course. Please EMR for full details. Discharge Plan - Follow Up Plan Condition: GUARDED Disposition: AGAINST MEDICAL ADVICE Instructions: Alcohol Use - When Is Drinking a Problem?, Alcohol Abuse and Alcoholism (DC) Referrals: Ronald Rangel MD [Staff Provider] - Tamar Meyer MD [Staff Provider] - <Kulwinder Salter - Last Filed: 02/17/19 17:17> Provider - Provider Date of Admission: 02/16/19 01:41 Attending physician: Earnest Chavira MD Consults: 02/16/19 07:47 Psychiatry Consult Routine Comment: Consulting Provider: Ronald Rangel Consulting Physician: Ronald Rangel Reason for Consult: EtOH withdrawal, Opiate withdrwal, schizophrenia 02/16/19 08:00 Neurology Consult Routine Comment: Consulting Provider: Tamar Meyer Consulting Physician: Tamar Meyer Reason for Consult: seizures Hospital Course - Lab Results Lab Results: Most Recent Lab Values WBC 5.5 K/uL (4.8-10.8) 02/17/19 06:38 RBC 3.97 Mil/uL (4.40-5.90) L 02/17/19 06:38 Hgb 12.1 g/dL (12.0-18.0) 02/17/19 06:38 Hct 36.2 % (35.0-51.0) 02/17/19 06:38 MCV 91.1 fL (80.0-94.0) 02/17/19 06:38 MCH 30.5 pg (27.0-31.0) 02/17/19 06:38 MCHC 33.5 g/dL (33.0-37.0) 02/17/19 06:38 RDW 13.9 % (11.5-14.5) 02/17/19 06:38 Plt Count 282 K/uL (130-400) 02/17/19 06:38 MPV 8.4 fL (7.2-11.7) 02/17/19 06:38 Neut % (Auto) 39.7 % (50.0-75.0) L 02/17/19 06:38 Lymph % (Auto) 41.3 % (20.0-40.0) H 02/17/19 06:38 [place] % (Auto) 13.4 % (0.0-10.0) H 02/17/19 06:38 Eos % (Auto) 5.4 % (0.0-4.0) H 02/17/19 06:38 Baso % (Auto) 0.2 % (0.0-2.0) 02/17/19 06:38 Neut # (Auto) 2.2 K/uL (1.8-7.0) 02/17/19 06:38 Lymph # (Auto) 2.3 K/uL (1.0-4.3) 02/17/19 06:38 [place] # (Auto) 0.7 K/uL (0.0-0.8) 02/17/19 06:38 Eos # (Auto) 0.3 K/uL (0.0-0.7) 02/17/19 06:38 Baso # (Auto) 0.0 K/uL (0.0-0.2) 02/17/19 06:38 Puncture Site Lra 02/16/19 08:10 pCO2 39 mm/Hg (35-45) 02/16/19 08:10 pO2 161 mm/Hg (80-100) H 02/16/19 08:10 HCO3 26.1 mmol/L (21-28) 02/16/19 08:10 ABG pH 7.43 (7.35-7.45) 02/16/19 08:10 ABG Total CO2 27.1 mmol/L (22-28) 02/16/19 08:10 ABG O2 Saturation 97.9 % (95-98) 02/16/19 08:10 ABG Base Excess 1.5 mmol/L (-2.0-3.0) 02/16/19 08:10 ABG Hemoglobin 11.6 g/dL (11.7-17.4) L 02/16/19 08:10 ABG Carboxyhemoglobin 1.2 % (0.5-1.5) 02/16/19 08:10 POC ABG HHb (Measured) 2.1 % (0.0-5.0) 02/16/19 08:10 ABG Methemoglobin 1.0 % (0.0-3.0) 02/16/19 08:10 Freddie Test Yes 02/16/19 08:10 Hgb O2 Saturation 95.7 % (95.0-98.0) 02/16/19 08:10 Liter Flow 3.0 02/16/19 08:10 Sodium 138 mmol/L (132-148) 02/17/19 06:38 Potassium 4.4 mmol/L (3.6-5.2) 02/17/19 06:38 Chloride 104 mmol/L (98-107) 02/17/19 06:38 Carbon Dioxide 26 mmol/L (22-30) 02/17/19 06:38 Anion Gap 13 (10-20) 02/17/19 06:38 BUN 21 mg/dL (9-20) H 02/17/19 06:38 Creatinine 0.7 mg/dL (0.8-1.5) L 02/17/19 06:38 Est GFR ( Amer) > 60 02/17/19 06:38 Est GFR (Non-Af Amer) > 60 02/17/19 06:38 POC Glucose (mg/dL) 101 mg/dL (65-110) 02/17/19 11:21 Random Glucose 94 mg/dL (75-110) 02/17/19 06:38 Hemoglobin A1c 5.8 % (4.2-6.5) 02/16/19 09:51 Lactic Acid 0.6 mmol/L (0.7-2.1) L 02/16/19 08:20 Calcium 8.7 mg/dl (8.6-10.4) 02/17/19 06:38 Phosphorus 4.1 mg/dL (2.5-4.5) 02/17/19 06:38 Magnesium 1.9 mg/dL (1.6-2.3) 02/17/19 06:38 Total Bilirubin 0.4 mg/dL (0.2-1.3) 02/17/19 06:38 AST 37 U/L (17-59) 02/17/19 06:38 ALT 27 U/L (21-72) 02/17/19 06:38 Alkaline Phosphatase 48 U/L (38-126) 02/17/19 06:38 Total Creatine Kinase 123 U/L (55-170) 02/16/19 08:20 Total Protein 6.7 g/dL (6.3-8.3) 02/17/19 06:38 Albumin 3.6 g/dL (3.5-5.0) 02/17/19 06:38 Globulin 3.1 gm/dL (2.2-3.9) 02/17/19 06:38 Albumin/Globulin Ratio 1.2 (1.0-2.1) 02/17/19 06:38 Triglycerides 64 mg/dL (0-149) 02/17/19 06:38 Cholesterol 130 mg/dL (0-199) 02/17/19 06:38 LDL Cholesterol Direct 55 mg/dL (0-129) 02/17/19 06:38 HDL Cholesterol 60 mg/dL (30-70) 02/17/19 06:38 Free T4 1.41 ng/dL (0.78-2.19) 02/16/19 11:16 TSH 3rd Generation 0.53 mIU/L (0.46-4.68) 02/16/19 08:20 Urine Color Yellow (YELLOW) 02/16/19 00:33 Urine Clarity Clear (Clear) 02/16/19 00:33 Urine pH 6.0 (5.0-8.0) 02/16/19 00:33 Ur Specific Upperco 1.020 (1.003-1.030) 02/16/19 00:33 Urine Protein Negative mg/dL (NEGATIVE) 02/16/19 00:33 Urine Glucose (UA) Normal mg/dL (Normal) 02/16/19 00:33 Urine Ketones Trace mg/dL (NEGATIVE) 02/16/19 00:33 Urine Blood Negative (NEGATIVE) 02/16/19 00:33 Urine Nitrate Negative (NEGATIVE) 02/16/19 00:33 Urine Bilirubin Negative (NEGATIVE) 02/16/19 00:33 Urine Urobilinogen 4.0 mg/dL (0.2-1.0) 02/16/19 00:33 Ur Leukocyte Esterase Neg Kar/uL (Negative) 02/16/19 00:33 Urine WBC (Auto) 1 /hpf (0-5) 02/16/19 00:33 Urine RBC (Auto) 2 /hpf (0-3) 02/16/19 00:33 Ur Squamous Epith Cells 1 /hpf (0-5) 02/16/19 00:33 Salicylates < 1.0 mg/dL 1 02/16/19 00:33 Urine Opiates Screen Positive (NEGATIVE) H 02/16/19 00:33 Urine Methadone Screen Negative (NEGATIVE) 02/16/19 00:33 Acetaminophen < 10.0 ug/mL (10.0-30.0) L 02/16/19 00:33 Ur Barbiturates Screen Negative (NEGATIVE) 02/16/19 00:33 Phenytoin < 3.0 ug/mL (10-20) L 02/16/19 11:16 Ur Phencyclidine Scrn Negative (NEGATIVE) 02/16/19 00:33 Ur Amphetamines Screen Negative (NEGATIVE) 02/16/19 00:33 U Benzodiazepines Scrn Negative (NEGATIVE) 02/16/19 00:33 U Oth Cocaine Metabols Positive (NEGATIVE) H 02/16/19 00:33 U Cannabinoids Screen Negative (NEGATIVE) 02/16/19 00:33 Alcohol, Quantitative < 10 mg/dl (0-10) 02/16/19 00:33 Attending/Attestation - Attestation I have personally seen and examined this patient.: Yes I have fully participated in the care of the patient.: Yes I have reviewed all pertinent clinical information, including history, physical exam and plan: Yes Notes (Text): 02/17/19 17:16 Patient was seen with resident Dr. Damian at the time when patient wanted to sign AMA. Care of this patient was gone over in detail with Dr. Damian. Kulwinder Salter D.O.
[2019-02-17] MEDS ORDERED: (Novolin R) Insulin Human Regular 100 units/ml vial SC SCH (16:30)
[2019-02-17] MEDS ORDERED: Omega-3-Acid Ethyl Esters 1 GM Cap PO SCH (18:00)
[2019-02-17] MEDS ORDERED: (Lantus) Insulin Glargine, Recombinant SC SCH (22:00)
[2019-02-18] MEDS ORDERED: Multiple Vitamins Tab PO SCH (10:00)
--- NOTE | 2019-02-18 13:22 | CARD ---
APPROVED REPORT Date of service: 02/16/2019 EKG Measurement Heart [id number] <Conclusion> Normal sinus rhythm Normal ECG
== END 2019-02-17 14:45 | disposition left against medical advice (07) | DRG 894 ==
LOC: C.ER 23:38 → C.7D 02-16 01:41 → C.5S 02-16 04:16
PROVIDERS: ADMIT Psychiatry & Neurology Psychiatry; ATTEND Family Medicine
PROC: HZ2ZZZZ Detoxification Services for Substance Abuse Treatment (ICD-10-PCS; principal; 2019-02-16)
PROC: 05HY33Z Insertion of Infusion Device into Upper Vein, Percutaneous Approach (ICD-10-PCS; 2019-02-16)
DX: F11.23 Opioid dependence with withdrawal (principal); F10.230 Alcohol dependence with withdrawal, uncomplicated; G40.909 Epilepsy, unspecified, not intractable, without status epilepticus; E10.9 Type 1 diabetes mellitus without complications; Y90.0 Blood alcohol level of less than 20 mg/100 ml; F14.10 Cocaine abuse, uncomplicated; F17.210 Nicotine dependence, cigarettes, uncomplicated; F20.9 Schizophrenia, unspecified; F31.9 Bipolar disorder, unspecified; F43.10 Post-traumatic stress disorder, unspecified; I10 Essential (primary) hypertension; Z59.0 Homelessness; Z91.14 Patient's other noncompliance with medication regimen; Z79.4 Long term (current) use of insulin; Z91.5 Personal history of self-harm